=== PATIENT | male | born 1950 | race Caucasian/White ===

== ENCOUNTER 2025-08-28 15:59 | Inpatient (IN) | payer BC, SELFPAY ==
[2025-08-28] VITALS (8 sets, daily range): BP systolic 110–167; BP diastolic 60–92; PULSE 110–136; RESP 18–95; TEMP 36.8–38.3; O2SAT 95–98; BMI 27.1
--- NOTE | 2025-08-28 16:08 | EKG_ITS ---
[facility] Test Date: 2025-08-28 Pat Name: GIANCARLO SCHUMACHER Department: Room: - Gender: Male Sample Maker: : 1950 Requested By: Liban Soriano Order Number: [id number] Reading MD: Liban Soriano Measurements Intervals [place] Rate: 128 P: ME: QRS: 58 QRSD: 94 T: 55 QT: 322 QTc: 471 Interpretive Statements ATRIAL FIBRILLATION WITH RAPID VENTRICULAR RESPONSE ABNORMAL RHYTHM ECG No previous ECG available for comparison /[id number]/S0/[id number]
--- NOTE | 2025-08-28 16:09 | XR_ITS ---
EXAMINATION: AP chest single view TECHNIQUE: AP portable semiupright chest single view Date and time: August 28, 2025, 1648 hours INDICATIONS: Sepsis alert today FINDINGS: The film is rotated RPO Mild prominence cardiac contour Ectatic thoracic aorta. No lobar pneumonia IMPRESSION: Limited chest film No lobar pneumonia
--- NOTE | 2025-08-28 16:10 | EDNOTE_ITS ---
ED General RME/HPI General Chief complaint: Weakness Stated complaint: WEAKNESS Time Seen by Provider: 08/28/25 16:00 Arrival date/time: 08/28/25 15:59 75-year-old male patient with significant history of chronic alcoholism, was brought in by EMS for failure to thrive. Apparently family was concerned after patient was noted to be bedridden, used to be ambulatory unaided, last time patient was walking was 3 weeks ago. Patient also verbalized last intake of alcohol about 3 weeks ago because he cannot get up and cannot go to store to buy the alcohol. When the EMS arrived patient was noted to have multiple bedsores, lying on his bed, with feces all over, according to the EMS the feces looks black. Patient was noted to be tachycardic, and febrile. Sepsis alert was initiated right away. Patient is denying any abdominal pain. Patient is alert and oriented x 3 GCS 15. Patient lives alone. Related Data Allergies Allergy/AdvReac Type Severity Reaction Status Date / Time No Known Allergies Allergy Verified 08/28/25 16:23 Review of Systems Review of Systems Narrative Review of Systems: Review of system reviewed and within normal limits except mentioned in HPI ED Exam Narrative Physical exam: VITAL SIGNS: Reviewed. GENERAL APPEARANCE: Alert and interactive, follows commands, no acute distress, HEAD AND FACE: Non-traumatic. ENT: PERRL, icteric sclera, eyelid no trauma, Mucous membrane moist. NECK: Supple, nontender, no nuchal rigidity. CHEST: No tenderness, no crepitus, no paradoxical movement, no retractions. LUNGS: Clear, well ventilated, symmetric, no rales, no wheezing, no ronchi, no stridor, good breath sounds bilaterally. HEART: Regular rate, regular rhythm, no murmur, no gallops. ABDOMEN: Soft, positive bowel sounds, nondistended, no guarding, nontender, no rebound, no masses, RECTAL: Deferred. GENITAL: Deferred. NEUROLOGICAL: Gross motor function intact sensory function intact, Appropriate for age. MUSCULOSKELETAL: low back nontender, full range of motion. EXTREMITIES: Nontender, full range of motion. SKIN: Color jaundice, dry, no rash, no lacerations, no abrasions, no contusions. Multiple bruising noted, healing abrasion noted to the left lateral leg LYMPHATICS: Deferred. Course Quality Measures none Orders Category Date Time Status COVID-19 Screening Questionnaire NOW Care 08/28/25 21:[address] Screening NOW Care 08/28/25 19:16 Active Agriculture Laboratory Technician STAT Care 08/28/25 16:08 Active Continuous Pulse Oximetry STAT Care 08/28/25 16:08 Completed Decision to Admit X1 Care 08/28/25 21:54 Active EKG (ED ONLY) *Do not use* NOW Care 08/28/25 16:08 Completed In and Out Catheter X1PRN Care 08/28/25 16:08 Active Insert IV NOW Care 08/28/25 16:08 Active NPO STAT Care 08/28/25 16:08 Active Occult Blood,Stool (Nursing) ONCE Care 08/28/25 16:08 Active Strict Intake and Output Routine Care 08/28/25 16:08 Ordered Diet Regular Diet 08/28/[address] abdomen pelvis w con Stat Exams 08/28/25 19:16 Completed EKG (ED Only) Stat Exams 08/28/25 16:08 Draft US gall bladder Stat Exams 08/28/25 16:32 Completed XR chest 1V SEPSIS PROTOCOL Stat Exams 08/28/25 16:09 Completed B-Type Natriuretic Peptide Stat Lab 08/28/25 17:16 Completed Blood Culture (Lab) Stat Lab 08/28/25 16:54 Received CBC Stat Lab 08/28/25 17:16 Completed Comprehensive Metabolic Panel Stat Lab 08/28/25 18:27 Completed Creatine Kinase Stat Lab 08/28/25 18:27 Completed LDH (Lactate Dehydrogenase) Stat Lab 08/28/25 18:27 Completed Lactate (Lactic Acid) Stat Lab 08/28/25 16:54 Completed Lactic Acid, 3 HR Stat Lab 08/28/25 20:16 Completed Lipase Stat Lab 08/28/25 18:27 Completed Magnesium Stat Lab 08/28/25 18:27 Completed Partial Thromboplastin Time Stat Lab 08/28/25 16:54 Completed Phosphorous Stat Lab 08/28/25 18:27 Completed Procalcitonin Stat Lab 08/28/25 18:27 Completed Prothrombin Time with INR Stat Lab 08/28/25 16:54 Completed Troponin I Stat Lab 08/28/25 18:27 Completed Urinalysis, C/S if Indicated Stat Lab 08/28/25 17:34 Completed Urine Culture Stat Lab 08/28/25 17:34 Received Acetaminophen Tab [Tylenol ES Tab] Med 08/28/25 17:54 Discontinued 1,000 mg PO X1 ONE Pantoprazole Inj [Protonix Inj] Med 08/28/25 16:08 Discontinued 80 mg IVP X1 ONE Ringers Lactated 1000 ml [Lactated Ringers] 1,000 ml Med 08/28/25 16:10 Discontinued IV 999 mls/hr Ringers Lactated 1000 ml [Lactated Ringers] 1,000 ml Med 08/28/25 21:07 Discontinued IV 999 mls/hr cefTRIAXone/D5w 1gm IV premix [Rocephin/D5w 1gm IV Med 08/28/25 16:09 Discontinued premix] 1 gm in 50 ml IV X1 Late Tray Request Routine Oth 08/28/25 17:49 Active Oxygen Delivery NOW RT 08/28/25 16:08 Active Vital Signs Vital signs: Vital Signs Temperature 100.1 F 08/28/25 16:08 Pulse Rate 117 H 08/28/25 16:08 Respiratory Rate 18 08/28/25 16:08 Blood Pressure 141/83 H 08/28/25 16:08 Pulse Oximetry (%) 95 08/28/25 16:08 Oxygen Delivery Method Room Air 08/28/25 16:08 Discharge Plan Plan Patient Disposition: Admit Acute Care w/in Hospital Discharge Disposition comment: Stable Prescriptions/Referrals Referrals: No Primary/Family,Physician [Primary Care Provider] - In 1 week Problem List Clinical Impression: Sepsis, UTI (urinary tract infection), Alcoholism, chronic, Cirrhosis of liver Patient/Caregiver Discharge Instructions Print Language: Tamazight Stand Alone Forms: Ramona Award Info., Patient Portal Info Letter MDM Narrative MDM hospital course (for use when minimal MDM required): 75-year-old male patient with significant history of chronic alcoholism, was brought in by EMS for failure to thrive. Apparently family was concerned after patient was noted to be bedridden, used to be ambulatory unaided, last time patient was walking was 3 weeks ago. Patient also verbalized last intake of alcohol about 3 weeks ago because he cannot get up and cannot go to store to buy the alcohol. When the EMS arrived patient was noted to have multiple bedsores, lying on his bed, with feces all over, according to the EMS the feces looks black. Patient was noted to be tachycardic, and febrile. Sepsis alert was initiated right away. Patient is denying any abdominal pain. Patient is alert and oriented x 3 GCS 15. Patient lives alone. Sepsis alert was initiated right away for fever and tachycardia. CBC showed leukocytosis 15.7 sodium 126 chloride 90 lactic acid 3.0 calcium 7.7 total bili of 6.7, AST of 85 alkaline phos of 164. Pro-Aiden was also noted to be elevated 1.5 urinalysis positive for UTI I did a rectal occult blood and it came back unremarkable. Chest x-ray came back normal. Ultrasound the gallbladder showed cholelithiasis with no sign of acute cholecystitis, common bile duct came back normal. CT scan of the abdomen and pelvis showed Cirrhosis, hepatosplenomegaly Mild ascites 3 mm upper pole right renal calculus Patient received IV ceftriaxone, Tylenol, IV fluids total of 2 L and Protonix IV. EKG showed sinus tachycardia, ventricular rate of 128 bpm, no ST segment elevation depression noted. We have filed for APS report since patient is having failure to thrive and got neglected. Spoke with hospitalist, Dr. Yasir Cohen, who admitted the patient. Medication Administration(s) Medication Administration History Discontinued Medications Acetaminophen (Acetaminophen 500 Mg Tablet) 1,000 mg PO X1 ONE Stop: 08/28/25 17:55 Last Admin: 08/28/25 18:32 Dose: Not Given Documented By: JL Non-Admin Reason: Patient Refused Ceftriaxone Sodium/Dextrose (Rocephin/D5w 1gm Iv Premix) 1 gm in 50 mls @ 100 mls/hr IV X1 ONE Stop: 08/28/25 16:38 Last Infusion: 08/28/25 17:46 Dose: Infused Documented By: Admin: 08/28/25 17:16 Dose: 100 mls/hr Documented By: BD Lactated Ringer's (Lactated Ringers) 1,000 mls @ 999 mls/hr IV .Q1H1M ONE Stop: 08/28/25 17:10 Last Infusion: 08/28/25 18:30 Dose: Infused Documented By: Admin: 08/28/25 17:16 Dose: 999 mls/hr Documented By: BD Lactated Ringer's (Lactated Ringers) 1,000 mls @ 999 mls/hr IV .Q1H1M ONE Stop: 08/28/25 22:07 Last Admin: 08/28/25 21:26 Dose: 999 mls/hr Documented By: LUCA Pantoprazole Sodium (Pantoprazole Inj 40 Mg Vial) 80 mg IVP X1 ONE Stop: 08/28/25 16:09 Last Admin: 08/28/25 17:17 Dose: 80 mg Documented By: KEIRA
--- NOTE | 2025-08-28 16:32 | XR_ITS ---
Examination: Abdomen sonogram, Limited Date and time of exam: August 28, 2025, 1923 hours INDICATIONS: History of chronic alcoholism with jaundice today Technique: Real-time javier scale transabdominal sonographic images of the upper abdomen obtained. Findings: Multiple gallstones Gallbladder wall 0.3 cm no edema Common bile duct 0.15 cm Pancreas obscured by bowel gas Liver 20.3 cm no focal liver lesions Normal hepatopetal portal venous flow Patent IVC IMPRESSION: Cholelithiasis, negative for cholecystitis
[2025-08-28 16:59] LABS: Lactate (Lactic Acid) 2.4 mMol/L (0.4-2.0)
--- NOTE | 2025-08-28 17:14 | PC.NURSE ---
pt refused in and out cath
[2025-08-28] MEDS: RINGERS LACTATED 1000 ML 1,000 ML 999 ML IV ×2 (17:16→21:26)
[2025-08-28] MEDS: cefTRIAXone/D5w 1gm IV premix 1 GM/50 ML BAG IV (17:16)
[2025-08-28 17:28] LABS: Basophils # (Auto) 0.1 Thou/mm3 (0.0-0.2); Basophils % (Auto) 1 % (0-2.5); Eosinophils # (Auto) 0.0 Thou/mm3 (0.0-0.5); Eosinophils % (Auto) 0 % (0-10); Hematocrit 33.2 % (41.0-53.0); Hemoglobin 11.5 g/dL (13.5-16.0); Immature Granulocytes Auto 0.33 Thou/mm3 (0.00-0.00); Lymphocytes # (Auto) 1.2 Thou/mm3 (1.0-4.8); Lymphocytes % (Auto) 7 % (10-50); Mean Corpuscular HGB Conc 34.6 g/dl (31.0-37.0); Mean Corpuscular Hemoglobin 31.7 pg (25.0-35.0); Mean Corpuscular Volume 92 fL (80-100); Monocytes # (Auto) 1.0 Thou/mm3 (0.0-0.8); Monocytes % (Auto) 6 % (0-12); Neutrophils # (Auto) 13.2 Thou/mm3 (1.8-7.7); Neutrophils % (Auto) 84 % (37-80); Nucleated Red Blood Cell # 0.00 Thou/mm3 (0.00-0.00); Nucleated Red Blood Cell % 0 /100 WBC (0); Platelet Count 234 Thou/mm3 (140-440); RDW Standard Deviation 58.6 fL (35.1-43.9); Red Blood Count 3.63 Miln/mm3 (4.50-5.90); White Blood Count 15.7 Thou/mm3 (3.8-10.6)
--- NOTE | 2025-08-28 17:39 | PC.NURSE ---
pt was brought in from ems found at home, pt was covered in feces, pt states that he fell about 7 weeks ago from recliner and spent 2 weeks on floor and 4 weeks in bed, he [place] his mother and father own mother and father are in 90's and live in main house. he states that he has only had boost milk shakes and bananas to eat no other source of food. he states that he has not had alcohol since he fell. and that he would drink every day most of the time when asked how much he stated he did not know. enough to feel like he was going to pass out get up and go to bed. he states prior to fall he lived like any other alcoholic able to move around drink and get up and do it again. he states that he has no help and lives alone. that his parent departmental buyer david arranged for him to come here. pt states he is hungry and does not know when he last had actual food.
[2025-08-28 17:44] LABS: Collection Type, Urine Clean Catch; Squamous Epithelial Cell,Urine 0 /hpf (0-5)
[2025-08-28 17:44] LABS: INR 2.1 (0.9-1.3); Partial Thromboplastin Time 21.1 Seconds (22.0-36.0); Prothrombin Time 21.0 Seconds (9.0-12.2)
[2025-08-28 17:46] LABS: B-Type Natriuretic Peptide 97 pg/mL (0-100)
[2025-08-28 18:26] LABS: Amorphous Crystals,Urine Present (Absent); Bacteria,Urine 3+; Bilirubin,Urine 1+ (Negative); Blood,Urine 2+ (Negative); Clarity,Urine Turbid (Clear/Hazy); Color,Urine Drk-Yellow (Lt Yel-Yel); Glucose, Urine Negative (Negative); Ketones,Urine Negative (Negative); Leukocyte Esterase,Urine Positive (Negative); Nitrite,Urine Negative (Negative); PH,Urine 6.5 (5.0-7.0); Protein,Urine Trace (Neg - Trace); RBC,Urine 3 /hpf (0-3); Specific Gravity,Urine 1.012 (1.001-1.035); Urobilinogen,Urine 6.0 mg/dL (0.0-1.0); WBC,Urine 45 /hpf (0-5)
[2025-08-28 18:27] LABS: Culture Indicated,Urine Yes
[2025-08-28 19:09] LABS: Alanine Aminotransferase 42 U/L (10-49); Albumin, Serum 2.7 gm/dL (3.4-4.8); Albumin/Globulin Ratio 0.8 (1.2-2.2); Alkaline Phosphatase 164 U/L (46-116); Anion Gap 10 (7-16); Aspartate Amino Transferase 85 U/L (0-34); BUN/Creatinine Ratio 19 Ratio (12-20); Bilirubin,Total 6.7 mg/dL (0.3-1.2); Blood Urea Nitrogen 19 mg/dL (9-23); Calcium 7.7 mg/dL (8.3-10.6); Calcium (Corrected) 8.7 mg/dL (8.5-10.1); Carbon Dioxide 26.3 mMol/L (20.0-31.0); Chloride 90 mMol/L (98-107); Creatinine (Component) 1.0 mg/dL (0.6-1.3); Estimated Creatinine Clearance 72.2 mL/min (>60); Globulin 3.4 gm/dL (2.3-3.5); Glucose 138 mg/dL (74-106); Lipase 46 U/L (12-53); Magnesium 2.2 mg/dL (1.6-2.6); Osmolality,Calculated 257 (275-295); Phosphorous 3.1 mg/dL (2.4-5.1); Potassium 4.6 mMol/L (3.4-5.1); Sodium 126 mMol/L (136-145); Total Protein 6.1 gm/dL (5.7-8.2); Troponin I < 0.020 ng/mL (0.0-0.045); eGFR > 60 See Note
[2025-08-28 19:15] LABS: Procalcitonin 1.50 ng/ml (0.0-0.49)
--- NOTE | 2025-08-28 19:16 | XR_ITS ---
Examination: CT abdomen with intravenous contrast CT pelvis with intravenous contrast 2-D coronal reconstructions 2-D sagittal reconstructions Date and time of exam: August 28, 2025, 2113 hours INDICATIONS: Weakness jaundice today with elevated total bilirubin. CTDI: vol (mGy) 21.31 DLP: (mGycm) 1399 Technique: Multiple axial sections of the abdomen and pelvis have been obtained. 64 slice high-resolution scanner used. 3 mm axial sections have been obtained, post intravenous injection 60 cc [id number] 2-D sagittal, coronal reconstructions obtained. Low dose protocols were performed. One or more of the following dose reduction techniques were used; automated exposure control, adjustment of the mA and/or KV according to patient size, use of iterative reconstruction technique. Findings: Minimal right pleural disease Liver irregular in contour and enlarged, 21 cm Splenomegaly 14 cm Gallstones No pancreatic or adrenal mass No extrahepatic biliary tract dilatation 3 mm upper pole right renal calculus, no hydronephrosis or ureteral calculi Mild ascites Aorta normal size No pericecal inflammatory change Abundant stool in the rectum Mild prostatomegaly Fat-containing inguinal hernias Contracted urinary bladder Lumbar fusion L3-L4 Prominent osteopenia IMPRESSION: Cirrhosis, hepatosplenomegaly Mild ascites 3 mm upper pole right renal calculus
--- NOTE | 2025-08-28 19:35 | PC.CC ---
Addendum entered by Yanira Ashton 08/28/25 19:37: APS report completed with [facility]. APS report faxed. APS copy on Pt chart. Original Note: Sarmad Delgado is a 75-year-old male admitted for Weakness. Horticulture Professor made contact with Pt at bedside to complete assessment and discuss discharge disposition. Role and reason for the contact was explained to Pt. Demographic information was verified. Pt identified Father Leighann Delgado [phone] as surrogate decision maker. Pt was independent with all ADLs, no source of DME prior to fall x3 weeks ago, since then Pt has been bedbound and unable to complete all ADLs without assistance. At time of discharge patient will return home, Pt declined SNIF/HH, Pt agreeable to Rehab. Pt denies any use of substance abuse but endorse alcoholism, no DV, APS report completed. Discharge Plan: Home Next of Kin: Father Leighann Delgado [phone]
[2025-08-28 19:57] LABS: Reflex Lactate? Y
[2025-08-28 20:39] LABS: Lactic Acid, 3 HR 3.0 mMol/L (0.4-2.0)
--- NOTE | 2025-08-28 21:06 | PC.NURSE ---
call received from daphney lindsey on the status of her uncle
--- NOTE | 2025-08-28 23:15 | XR_ITS ---
Examination: Shoulder, right, 3 views Technique: Shoulder AP internal rotation, AP external rotation, Y view shoulder, 3 views Exam date and time : August 29, 2025, 0016 hours INDICATIONS: Right shoulder pain 2 weeks. FINDINGS: Moderate to advanced osteoarthritis glenohumeral joint No fracture or shoulder dislocation Moderate osteoarthritis acromioclavicular joint IMPRESSION: Moderate to advanced osteoarthritis glenohumeral joint
[2025-08-28 23:22] LABS: Creatine Kinase 19 U/L (34-171)
[2025-08-29] VITALS (10 sets, daily range): BP systolic 95–127; BP diastolic 55–79; PULSE 98–130; RESP 15–20; TEMP 36.2–37.1; O2SAT 93–96; BMI 30.2
--- NOTE | 2025-08-29 01:24 | ECHO_ITS ---
Patient Info Name: Sarmad Delgado Age: 75 years : 1950 Gender: Male Ht: 183 cm Wt: 91 kg BSA: 2.16 m2 BP: 127 / 79 mmHg Heart Rhythm: Atrial Fibrillation Exam Date: 08/29/2025 9:03 AM Admit Date: 08/29/2025 Site: [facility] Room Number: 274 Patient Status: I Technical Quality: Fair Exam Type: CA echo doppler complete Program Officer: Nayely Lorenzana Ordering Physician: Sourav Carballo Study Info Indications Afib, new onset - Primary Location: S2NX Left Ventricular Outflow Tract Name Value Normal LVOT 2D LVOT Diameter 2.1 cm LVOT Doppler LVOT Peak Velocity 106 cm/s LVOT Mean Gradient 3 mmHg LVOT VTI 20 cm LVOT VTI/AV VTI Ratio 0.7 LVOT Stroke Volume 69 ml Pulmonic Valve Name Value Normal PV Doppler PV Peak Velocity 78 cm/s Mitral Valve Name Value Normal MV Doppler MV Decel Otero 434 cm/s2 MV PHT 53 ms MV Area (PHT) 4.1 cm2 4.0-5.0 MV Diastolic Function MV E Peak Velocity 80 cm/s MV A Peak Velocity 29 cm/s MV E/A 2.7 MV Annular TDI MV Septal e' Velocity 11.7 cm/s MV E/e' (Septal) 6.8 MV Lateral e' Velocity 13.8 cm/s MV E/e' (Lateral) 5.8 MV e' Average 12.75 cm/s MV E/e' (Average) 6.3 Tricuspid Valve Name Value Normal TV Regurgitation Doppler TR Peak Velocity 228 cm/s Estimated PAP/RSVP RA Pressure 8 mmHg <=5 PA Systolic Pressure 29 mmHg <36 RV Systolic Pressure 29 mmHg <36 TV Annular TDI TV Lateral Calista s' Velocity 12.3 cm/s >=9.5 Aortic Valve Name Value Normal AV 2D/MM AV Cusp Sep (MM) 1.7 cm AV Doppler AV Peak Velocity 155 cm/s AV Mean Gradient 5 mmHg AV VTI 27 cm AV Area (Cont Eq VTI) 2.5 cm2 >=3.0 AV Area (Cont Eq Jez) 2.4 cm2 AV DI (Jez) 0.68 AV Regurgitation 2D LVOT Area 3.5 cm2 Ventricles Name Value Normal LV Dimensions 2D/MM IVS Diastolic Thickness (2D) 1.2 cm 0.6-1.0 LVID Diastole (2D) 4.7 cm 4.2-5.8 LVIW Diastolic Thickness (2D) 1.0 cm 0.6-1.0 LVID Systole (2D) 3.5 cm 2.5-4.0 LVOT Diameter 2.1 cm LV Mass (2D Cubed) 191.43 g 88.00-224.00 LV Mass Index (2D Cubed) 89 g/m2 49-115 Relative Wall Thickness (2D) 0.43 <=0.42 IVS/LVIW Diastolic Thickness (2D) 1.23 0.00-1.50 LV Fractional Shortening/Ejection Fraction 2D/MM LV Fractional Shortening (2D) 26 % 25-43 LV EF (2D Teichholz) 50 % RV Dimensions 2D/MM TV Lateral Calista s' Velocity 12.3 cm/s >=9.5 Atria Name Value Normal LA Dimensions LA Volume (4C A-L) 54 ml Left Ventricle Left ventricular chamber dimension is normal. Left ventricular systolic function is hyperdynamic with visually estimated ejection fraction of 60-65%. There is mild concentric hypertrophy noted in the left ventricle. Left ventricular segmental wall motion is normal. There is normal diastolic function in the left ventricle. Right Ventricle Right ventricular chamber dimension is normal. Right ventricular systolic function is normal. Left Atrium Left atrial chamber dimension is mildly enlarged. Right Atrium Right atrial chamber dimension is normal. Aortic Valve The aortic valve is trileaflet. There is no aortic valve sclerosis. There is no aortic valve stenosis with a peak velocity of 155 cm/s, mean gradient of 5 mmHg, and aortic valve area of 2.5 cm2. There is no aortic valve regurgitation. Pulmonic Valve The pulmonic valve is normal. There is no pulmonic valve stenosis. There is no pulmonic regurgitation. Mitral Valve The mitral valve has normal leaflets. There is no mitral valve stenosis. There is trace mitral valve regurgitation. Tricuspid Valve The tricuspid valve leaflets are normal. There is no tricuspid valve stenosis. There is mild tricuspid valve regurgitation. No pulmonary hypertension, estimated pulmonary arterial systolic pressure is 29 mmHg and systemic blood pressure of 127 mmHg in systole. Pericardium/Pleural The pericardium appears normal. There is trivial pericardial effusion with no tamponade. No pleural effusion visualized. Inferior Vena Cava Not well visualized inferior vena cava with >50% collapse upon inspiration consistent with normal right atrial pressure, 8 mmHg. Aorta The aortic measurements are indexed to age and body surface area. The aortic root at the sinus of Valsalva is not well visualized. The prox ascending aorta is not well visualized. Summary 1. Left ventricle size is normal and systolic function is hyperdynamic. Estimated ejection fraction is 60-65%. There is normal diastolic function. There is mild concentric hypertrophy noted. 2. Right ventricle chamber size is normal and systolic function is normal. Estimated RVSP is 29 mmHg. 3. There is trace mitral valve regurgitation. 4. There is mild tricuspid valve regurgitation. 5. The left atrium is mildly enlarged. The right atrium is normal. 6. Not well visualized IVC with estimated RA pressure 8 mmHg. Report Signatures Finalized by Eli Chacon on 08/29/2025 02:51 PM
--- NOTE | 2025-08-29 01:31 | ESHP_ITS ---
<Statement entered by Sourav Carballo MD - 08/29/25 07:08> 75-year-old male with no significant past medical history, chronic alcohol intake, never seen a doctor in the last 20 years presented to the hospital with chief complaints of generalized weakness, not able to get out of bed since 8 weeks. Patient noted to give different time line history to different people. To me, he endorsed that he was under alcohol intoxication and had a fall 8 weeks ago and fell on his right shoulder and right half of the body. Later he was not able to get up due to which he stayed on the floor for 4 weeks without food and water. Later some of his family members came down and moved him to the bed and where he stayed on it for 4 weeks without food and water. But on examination, patient does not appear to be severely dehydrated or stayed down for 8 weeks. He also endorsed that he had decubitus ulcer as he laid down on the floor for a while now. Denies fever, shortness of breath, nausea, vomitings, burning micturition. Vitals at the time of admission are significant for blood pressure 141/83 mmHg, pulse rate 117 bpm, regular. On examination, noted to have bruise below the right shoulder, restricted movement in the right and left shoulder, grossly icteric, hepatosplenomegaly, minimal bilateral pitting pedal edema of 1+. Labs at the time of admission are significant for WBC 15.7, hemoglobin 11.5, INR 2.1, sodium 126, chloride 90, calculated osmolality 257, total bilirubin 6.7, direct bilirubin 5.2, creatinine kinase 19, albumin 2.7, Pro-Aiden 1.5. Urinalysis is significant for 3+ bacteria, 45 WBC. Chest x-ray is severely rotated. Gallbladder ultrasound showed cholelithiasis and is negative for cholecystitis. EKG showed atrial fibrillation with rapid ventricular rate with no acute ST and T wave changes. CT abdomen/pelvis showed cirrhosis, hepatosplenomegaly, mild ascites. Shoulder x-rays negative for fracture. 2 L of fluid boluses given in the ED. Started on heparin drip, metoprolol, ceftriaxone, CIWA protocol, physical therapy referral, wound care referral was done. Follow-up with blood cultures and urine cultures I have personally seen and examined the patient, agree with residents assessment and plan Patient plan of care was discussed with the attending physician, Dr. Reilly Carballo, PGY2 Documentation for date of: 08/29/25 HPI History of Present Illness History of present illness: HPI: 75-year-old male past medical history of alcoholism presented to the ED [facility] in the afternoon of 08/28/2025 after being bedridden for 4 weeks.? Patient is a poor historian.? He was reported to have been found down by a neighbor covered in his own feces 8 weeks ago after being intoxicated.? He was transferred to a bed where he has stayed for the past 4 weeks until presentation.? He was unable to ambulate for the past 8 weeks and reportedly did not eat or drink for the past 8 weeks. It was reported that when EMS arrived the patient was lying in bed covered with his own feces that were black. The patient was found to have UTI and a lactate of 2.4 which increased to 3.0.? On arrival the patient was tachycardic, febrile, and had a leukocytosis meeting 3/4 SIRS criteria with a suspected source of infection and the patient had lactic acidosis, meeting severe sepsis criteria.? Sepsis alert was initiated and the patient received 2 L of LR and 1 g of ceftriaxone. ?The patient was also found to be in A-fib and to be jaundiced with a total bilirubin of 6.7.? Gallbladder ultrasound was positive for mild ascites, cirrhosis, and cholelithiasis with no CBD or cystic duct obstruction.? Naidu?s sign was negative on exam. Per the patient his last drink was 8 weeks ago.? Before then he would have 1-2 week episodes of binge drinking consuming 1/5 of vodka daily.? This has been going on for the past 15-20 years.? The frequency of binge drinking episodes was unspecified. Patient was admitted for severe sepsis secondary to UTI. ED Course: * Significant vitals on arrival: BP 141/83, pulse 117, temp 101.0, saturating at 95% on room air. * Significant labs: WBC 15.7, hemoglobin 11.5, PT 21, INR 2.1, PTT 21.1, sodium 126, chloride 90, glucose 245, calculated osmolality 257, lactic acid 2.4 increased to 3.0, calcium 7.7, T. bili 6.7, AST 85, ALT 42, alk phos 164, albumin 2.7, Pro-Aiden 1.5. * Imaging: Chest x-ray showed no evidence of pneumonia, mild prominence of the cardiac contour, ectatic thoracic aorta.? Gallbladder ultrasound was significant for multiple gallstones, no cholecystitis, CBD 0.15 cm, gallbladder wall 0.3 cm with no edema.? EKG showed A-fib RVR with a rate of 128 and QTc of 471, no acute ST segment changes.? CTAP showed a cirrhotic 21 cm liver with irregular contour, splenomegaly, 3 mm upper pole right renal calculus with no hydronephrosis, mild ascites, fat-containing inguinal hernias, lumbar fusion L3-L4. * Urine: Turbid, 2+ blood, 1+ bilirubin, 45 WBC, amorphous crystals, 3+ bacteria, leukocyte esterase positive * ED intervention: Patient received 1 g ceftriaxone, 2 L of LR, and 80 mg IV push of pantoprazole.? Urine culture and blood cultures were sent. History: * Past medical history: Alcohol use disorder * Surgical history: Bilateral rotator cuff repairs * Social history: Alcohol use disorder, 15-20 years, 1-2-week episodes of binge drinking with 1/5 of vodka daily, unknown frequency of episodes.? Denies tobacco or illicit drug use. Allergies: * No known drug allergies. Home Medications: (Pending Med Rec) * Denies taking any home medications. CODE STATUS: Full Code Review of Systems Review of Systems Narrative Review of Systems: Review of Systems: * General: Denies fevers, admits to chills. * HEENT: Denies headache, congestion, or sore throat. * Cardiac: Denies chest pain or palpitations. * Pulmonary: Denies shortness of breath or cough. * GI: Denies nausea, vomiting, diarrhea, constipation, melena, or hematochezia. * : Denies dysuria, hematuria, frequency, or urgency. * MSK: Denies pain in the extremities, joints, or myalgias. * Neuro: Denies weakness, numbness, vision changes, or speech difficulty. Exam Vital Signs Temp Pulse Resp BP Pulse Ox O2 Del Method 98.6 F 110 H 23 H 119/60 97 Room Air 08/28/25 23:51 08/28/25 23:51 08/28/25 23:51 08/28/25 23:51 08/28/25 23:51 08/28/25 23:18 Narrative Exam General: Jaundiced, scleral icterus. Awake and in no acute distress. Conversational and non-toxic appearing. Neurologic: GCS 15. Alert and oriented x3, no gross neurological deficit, and patient able to move all 4 extremities. HEENT: Normocephalic, atraumatic, mucous membranes moist. Pupils reactive to light. Heart: Irregular rhythm, tachycardic in the 120s, no murmurs. Lungs: Clear to auscultation bilaterally with no wheezing or crackles. Abdomen: Firm, distended, Naidu sign negative. Minimal ascetic fluid wave. Nontender. No guarding or rebound tenderness. Extremities: Ecchymosis inferior to the right shoulder on the chest. No edema. 2+ radial and dorsalis pedis pulses bilaterally. Skin: Jaundiced. Warm. Dry. No rash or ecchymoses. Results: Labs 08/29/25 01:51 08/29/25 01:51 Labs: Short CBC 08/28/25 Range/Units 17:16 WBC 15.7 H (3.8-10.6) Thou/mm3 Hgb 11.5 L (13.5-16.0) g/dL Hct 33.2 L (41.0-53.0) % Plt Count 234 (140-440) Thou/mm3 BMP 08/28/25 18:27 Sodium 126 L Potassium 4.6 Chloride 90 L Carbon Dioxide 26.3 BUN 19 Creatinine 1.0 Glucose 138 H Calcium 7.7 L Cardiac Enzymes 08/28/25 08/28/25 Range/Units 18:27 22:56 Total Creatine Kinase Not Performed. 19 L Troponin I < 0.020 (0.0-0.045) ng/mL Liver Function 08/28/25 Range/Units 18:27 Total Bilirubin 6.7 H (0.3-1.2) mg/dL AST 85 H (0-34) U/L ALT 42 (10-49) U/L Alkaline Phosphatase 164 H (46-116) U/L Albumin 2.7 L (3.4-4.8) gm/dL Urine 08/28/25 Range/Units 17:34 Urine Color Drk-Yellow A (Lt Yel-Yel) Urine Clarity Turbid A (Clear/Hazy) Urine pH 6.5 (5.0-7.0) Ur Specific [place] 1.012 (1.001-1.035) Urine Protein Trace (Neg - Trace) Urine Glucose (UA) Negative (Negative) Quality Measures Quality Measures VTE prophylaxis Advance care planning discussed with:: patient Medications Home Medications and Allergies Home Medications ?Medication ?Instructions ?Recorded ?Confirmed ?Type No Known Home Medications 08/29/2508/16 History Allergies Allergy/AdvReac Type Severity Reaction Status Date / Time No Known Allergies Allergy Verified 08/28/25 16:23 Visit Medications Acetaminophen (Acetaminophen 325 Mg Tablet) 650 mg PO Q6H PRN PRN Reason: Fever >100.4 Stop: 09/28/25 01:19 Diazepam (Diazepam Inj 5 Mg/Ml Vial 2 Ml) 5 mg IVP X1 PRN PRN Reason: Breakthrough Agitation Heparin Sodium (Porcine) (Heparin Sod Inj 5000 Unit/Ml Vial) 7,250 unit 80 unit/kg (7250 unit) IV X1 ONE; Protocol Stop: 08/29/25 01:22 Heparin Sodium/Dextrose (Heparin In D5w Ivpb) 25,000 unit in 250 mls @ 16.329 mls/hr IV .[id number] ENRIQUE; Protocol Stop: 09/12/25 01:29 Ceftriaxone Sodium/Dextrose (Rocephin/D5w 1gm Iv Premix) 1 gm in 50 mls @ 100 mls/hr IV QDAY ENRIQUE Stop: 09/05/25 08:59 Lorazepam (Lorazepam 0.5 Mg Tablet) 0.5 mg PO Q4HR PRN PRN Reason: CIWA Score 2-6 Stop: 09/03/25 01:23 Lorazepam (Lorazepam 0.5 Mg Tablet) 1 mg PO Q4HR PRN PRN Reason: CIWA SCORE 7-11 Stop: 09/03/25 01:23 Lorazepam (Lorazepam 0.5 Mg Tablet) 2 mg PO Q4HR PRN PRN Reason: CIWA SCORE 12-15 Stop: 09/03/25 01:23 Discontinued Medications Acetaminophen (Acetaminophen 500 Mg Tablet) 1,000 mg PO X1 ONE Stop: 08/28/25 17:55 Last Admin: 08/28/25 18:32 Dose: Not Given Ceftriaxone Sodium/Dextrose (Rocephin/D5w 1gm Iv Premix) 1 gm in 50 mls @ 100 mls/hr IV X1 ONE Stop: 08/28/25 16:38 Last Infusion: 08/28/25 17:46 Dose: Infused Lactated Ringer's (Lactated Ringers) 1,000 mls @ 999 mls/hr IV .Q1H1M ONE Stop: 08/28/25 17:10 Last Infusion: 08/28/25 18:30 Dose: Infused Lactated Ringer's (Lactated Ringers) 1,000 mls @ 999 mls/hr IV .Q1H1M ONE Stop: 08/28/25 22:07 Last Infusion: 08/28/25 22:37 Dose: Infused Ceftriaxone Sodium/Dextrose (Rocephin/D5w 1gm Iv Premix) 1 gm in 50 mls @ 100 mls/hr IV QDAY ENRIQUE Stop: 09/05/25 01:22 Pantoprazole Sodium (Pantoprazole Inj 40 Mg Vial) 80 mg IVP X1 ONE Stop: 08/28/25 16:09 Last Admin: 08/28/25 17:17 Dose: 80 mg Thiamine HCl (Thiamine Inj 100 Mg/Ml Vial 2 Ml) 100 mg IVP X1 ONE Stop: 08/29/25 01:24 Assessment & Plan Plan Summary: 75-year-old male past medical history of alcoholism presented to the ED [facility] in the afternoon of 08/28/2025 after being bedridden for 4 weeks.? Patient is a poor historian.? He was reported to have been found down by a neighbor covered in his own feces 8 weeks ago after being intoxicated.? He was transferred to a bed where he has stayed for the past 4 weeks until presentation.? He was unable to ambulate for the past 8 weeks and reportedly did not eat or drink for the past 8 weeks. It was reported that when EMS arrived the patient was lying in bed covered with his own feces that were black. The patient was found to have UTI and a lactate of 2.4 which increased to 3.0.? On arrival the patient was tachycardic, febrile, and had a leukocytosis meeting 3/4 SIRS criteria with a suspected source of infection and the patient had lactic acidosis, meeting severe sepsis criteria. Patient was admitted for severe sepsis secondary to UTI. #Sepsis Secondary to #UTI #Leukocytosis #Lactic acidosis * Patient presented with fever 101.0, pulse 117, WBC 15.7 meeting 3/4 SIRS criteria for sepsis * Patient had a lactic acid 2.4 increased to 3.0, qualified for severe sepsis * Suspected source is UTI. Urinalysis showed: Turbid, 2+ blood, 1+ bilirubin, 45 WBC, amorphous crystals, 3+ bacteria, leukocyte esterase positive * Patient's BP has been stable and there is no evidence of end organ damage, creatinine and troponins are normal, no pulmonary edema Plan: * Ceftriaxone 1 g daily * Urine cultures pending * Blood cultures pending * Will determine whether or not to use IV maintenance fluids depending on the next lactic acid because the patient has ascites and liver failure and there is no echo on file (Echo ordered) #Hyperbilirubinemia #Cholelithiasis #Cirrhosis secondary to #Alcohol use disorder #Hypoalbuminemia #Mild Ascites * T. bili 6.7, CTAP showed a cirrhotic 21 cm liver with irregular contour no evidence of CBD obstruction * Elevated T. bili likely secondary to cirrhosis * Patient mentioned that his last drink was 8 weeks ago * No signs of withdrawal on exam: No tremors, no diaphoresis * PT 21, INR 2.1, PTT 21.1, Albumin 2.7, Mild ascites * MELD Score 22: 19.6% 3-month mortality * [facility] Discriminant Function for Alcoholic Hepatitis: 47.2 * Child Shahid: 11, class C, life expectancy 1-3 years, abdominal surgery perioperative mortality 82% Plan: * CIWA protocol * CIWA score 2-6: Ativan 0.5 mg Q 4 PRN * CIWA score 7-11: Ativan 1 mg Q 4 PRN * CIWA score 12-15: Ativan 2 mg Q 4 PRN * Diazepam 5 mg IV push x 1 as needed for breakthrough agitation * Folic acid 1 mg daily * Patient received 100 mg IV push thiamine * director of medical staff services referral #New onset A-fib with RVR * EKG showed A-fib RVR with a rate of 128 and QTc of 471, no acute ST segment changes. * Patient does not take any medications nor has he seen a physician in many years * CHADSVASC: 3 * +1 (age 65-74) * +1 (possible CHF history?, patient had mild prominence of the cardiac contour on chest x-ray) * +1 (patient had BP 167/92) * HASBLED: 5 * +1 (hypertension) * +1 (liver disease) * +1 (high INR) * +1 (age over 65) * +1 (alcohol use) Plan: * Patient received one-time dose of 8000 units of heparin * Heparin drip 18 units per Kg per hour * Echo ordered * Cardiology consulted #Hyponatremia #Hypochloremia * Sodium 126, chloride 90 * Likely secondary to decreased oral intake versus volume depletion * Patient has mild ascites but may require more fluids due to lactic acidosis and sepsis Plan: * Patient started eating in the ED, will continue to encourage oral intake * Will continue to monitor and use 0.9% normal saline for resuscitation if lactic acid uptrend #Hyperglycemia * Presented with a glucose of 138, fingerstick was 245 Plan: * Follow-up A1c #Acute normocytic anemia #Tarry stools * Patient presented with a hemoglobin of 11.5, MCV 92 * Per EMS the patient was covered in tarry stools when they arrived at his home * FOBT was negative in the ED * No suspicion for active bleeding at this time * May be dilutional or secondary to nutritional deficiency secondary to alcohol use Plan: * Transfuse if hemoglobin less than 7 #Incidental finding of 3 mm upper pole right renal calculus * On CT abdomen pelvis Plan: * No direct intervention at this time Hospital Maintenance: DVT ppx: Heparin drip Diet: Regular diet IV lines: Peripheral IVs Code status: Full code Dispo: Telemetry monitoring floor, started heparin drip, follow-up lactate, starting ceftriaxone for, cardiology consulted for A-fib. Patient was seen and discussed with my attending physician Dr. Reilly LANDEROS and my senior resident Dr Kait LANDEROS PGY-2. Mathew Pringle DO PGY-1. Attending Provider Attestation/Addendum After examination of the patient and review of the clinical data I feel that this patient needs admission to the hospital for further treatment/evaluation. Plan of care discussed with patient and is in agreement. I Rody Grover MD, attest that I was physically present for patterson portions of evaluation, and examined patient, labs and imagings and plan of care were discussed with IM residents team, and I agree with the findings and plans documented above.
--- NOTE | 2025-08-29 01:31 | PD.RESHP ---
Documentation for date of: 08/29/25 HPI History of Present Illness History of present illness: HPI: 75-year-old male past medical history of alcoholism presented to the ED [facility] in the afternoon of 08/28/2025 after being bedridden for 4 weeks.? Patient is a poor historian.? He was reported to have been found down by a neighbor covered in his own feces 8 weeks ago after being intoxicated.? He was transferred to a bed where he has stayed for the past 4 weeks until presentation.? He was unable to ambulate for the past 8 weeks and reportedly did not eat or drink for the past 8 weeks. It was reported that when EMS arrived the patient was lying in bed covered with his own feces that were black. The patient was found to have UTI and a lactate of 2.4 which increased to 3.0.? On arrival the patient was tachycardic, febrile, and had a leukocytosis meeting 3/4 SIRS criteria with a suspected source of infection and the patient had lactic acidosis, meeting severe sepsis criteria.? Sepsis alert was initiated and the patient received 2 L of LR and 1 g of ceftriaxone. ?The patient was also found to be in A-fib and to be jaundiced with a total bilirubin of 6.7.? Gallbladder ultrasound was positive for mild ascites, cirrhosis, and cholelithiasis with no CBD or cystic duct obstruction.? Naidu?s sign was negative on exam. Per the patient his last drink was 8 weeks ago.? Before then he would have 1-2 week episodes of binge drinking consuming 1/5 of vodka daily.? This has been going on for the past 15-20 years.? The frequency of binge drinking episodes was unspecified. Patient was admitted for severe sepsis secondary to UTI. ED Course: Significant vitals on arrival: BP 141/83, pulse 117, temp 101.0, saturating at 95% on room air. Significant labs: WBC 15.7, hemoglobin 11.5, PT 21, INR 2.1, PTT 21.1, sodium 126, chloride 90, glucose 245, calculated osmolality 257, lactic acid 2.4 increased to 3.0, calcium 7.7, T. bili 6.7, AST 85, ALT 42, alk phos 164, albumin 2.7, Pro-Aiden 1.5. Imaging: Chest x-ray showed no evidence of pneumonia, mild prominence of the cardiac contour, ectatic thoracic aorta.? Gallbladder ultrasound was significant for multiple gallstones, no cholecystitis, CBD 0.15 cm, gallbladder wall 0.3 cm with no edema.? EKG showed A-fib RVR with a rate of 128 and QTc of 471, no acute ST segment changes.? CTAP showed a cirrhotic 21 cm liver with irregular contour, splenomegaly, 3 mm upper pole right renal calculus with no hydronephrosis, mild ascites, fat-containing inguinal hernias, lumbar fusion L3-L4. Urine: Turbid, 2+ blood, 1+ bilirubin, 45 WBC, amorphous crystals, 3+ bacteria, leukocyte esterase positive ED intervention: Patient received 1 g ceftriaxone, 2 L of LR, and 80 mg IV push of pantoprazole.? Urine culture and blood cultures were sent. History: Past medical history: Alcohol use disorder Surgical history: Bilateral rotator cuff repairs Social history: Alcohol use disorder, 15-20 years, 1-2-week episodes of binge drinking with 1/5 of vodka daily, unknown frequency of episodes.? Denies tobacco or illicit drug use. Allergies: No known drug allergies. Home Medications: (Pending Med Rec) Denies taking any home medications. CODE STATUS: Full Code Review of Systems Review of Systems Narrative Review of Systems: Review of Systems: General: Denies fevers, admits to chills. HEENT: Denies headache, congestion, or sore throat. Cardiac: Denies chest pain or palpitations. Pulmonary: Denies shortness of breath or cough. GI: Denies nausea, vomiting, diarrhea, constipation, melena, or hematochezia. : Denies dysuria, hematuria, frequency, or urgency. MSK: Denies pain in the extremities, joints, or myalgias. Neuro: Denies weakness, numbness, vision changes, or speech difficulty. Exam Vital Signs Temp Pulse Resp BP Pulse Ox O2 Del Method 98.6 F 110 H 23 H 119/60 97 Room Air 08/28/25 23:51 08/28/25 23:51 08/28/25 23:51 08/28/25 23:51 08/28/25 23:51 08/28/25 23:18 Narrative Exam General: Jaundiced, scleral icterus. Awake and in no acute distress. Conversational and non-toxic appearing. Neurologic: GCS 15. Alert and oriented x3, no gross neurological deficit, and patient able to move all 4 extremities. HEENT: Normocephalic, atraumatic, mucous membranes moist. Pupils reactive to light. Heart: Irregular rhythm, tachycardic in the 120s, no murmurs. Lungs: Clear to auscultation bilaterally with no wheezing or crackles. Abdomen: Firm, distended, Naidu sign negative. Minimal ascetic fluid wave. Nontender. No guarding or rebound tenderness. Extremities: Ecchymosis inferior to the right shoulder on the chest. No edema. 2+ radial and dorsalis pedis pulses bilaterally. Skin: Jaundiced. Warm. Dry. No rash or ecchymoses. Results: Labs 08/29/25 01:51 08/29/25 01:51 Labs: Short CBC 08/28/25 Range/Units 17:16 WBC 15.7 H (3.8-10.6) Thou/mm3 Hgb 11.5 L (13.5-16.0) g/dL Hct 33.2 L (41.0-53.0) % Plt Count 234 (140-440) Thou/mm3 BMP 08/28/25 18:27 Sodium 126 L Potassium 4.6 Chloride 90 L Carbon Dioxide 26.3 BUN 19 Creatinine 1.0 Glucose 138 H Calcium 7.7 L Cardiac Enzymes 08/28/25 08/28/25 Range/Units 18:27 22:56 Total Creatine Kinase Not Performed. 19 L Troponin I < 0.020 (0.0-0.045) ng/mL Liver Function 08/28/25 Range/Units 18:27 Total Bilirubin 6.7 H (0.3-1.2) mg/dL AST 85 H (0-34) U/L ALT 42 (10-49) U/L Alkaline Phosphatase 164 H (46-116) U/L Albumin 2.7 L (3.4-4.8) gm/dL Urine 08/28/25 Range/Units 17:34 Urine Color Drk-Yellow A (Lt Yel-Yel) Urine Clarity Turbid A (Clear/Hazy) Urine pH 6.5 (5.0-7.0) Ur Specific [place] 1.012 (1.001-1.035) Urine Protein Trace (Neg - Trace) Urine Glucose (UA) Negative (Negative) Quality Measures Quality Measures VTE prophylaxis Advance care planning discussed with:: patient Medications Home Medications and Allergies Home Medications ?Medication ?Instructions ?Recorded ?Confirmed ?Type No Known Home Medications 08/29/25 08/29/25 History Allergies Allergy/AdvReac Type Severity Reaction Status Date / Time No Known Allergies Allergy Verified 08/28/25 16:23 Visit Medications Acetaminophen (Acetaminophen 325 Mg Tablet) 650 mg PO Q6H PRN PRN Reason: Fever >100.4 Stop: 09/28/25 01:19 Diazepam (Diazepam Inj 5 Mg/Ml Vial 2 Ml) 5 mg IVP X1 PRN PRN Reason: Breakthrough Agitation Heparin Sodium (Porcine) (Heparin Sod Inj 5000 Unit/Ml Vial) 7,250 unit 80 unit/kg (7250 unit) IV X1 ONE; Protocol Stop: 08/29/25 01:22 Heparin Sodium/Dextrose (Heparin In D5w Ivpb) 25,000 unit in 250 mls @ 16.329 mls/hr IV .[id number] ENRIQUE; Protocol Stop: 09/12/25 01:29 Ceftriaxone Sodium/Dextrose (Rocephin/D5w 1gm Iv Premix) 1 gm in 50 mls @ 100 mls/hr IV QDAY ENRIQUE Stop: 09/05/25 08:59 Lorazepam (Lorazepam 0.5 Mg Tablet) 0.5 mg PO Q4HR PRN PRN Reason: CIWA Score 2-6 Stop: 09/03/25 01:23 Lorazepam (Lorazepam 0.5 Mg Tablet) 1 mg PO Q4HR PRN PRN Reason: CIWA SCORE 7-11 Stop: 09/03/25 01:23 Lorazepam (Lorazepam 0.5 Mg Tablet) 2 mg PO Q4HR PRN PRN Reason: CIWA SCORE 12-15 Stop: 09/03/25 01:23 Discontinued Medications Acetaminophen (Acetaminophen 500 Mg Tablet) 1,000 mg PO X1 ONE Stop: 08/28/25 17:55 Last Admin: 08/28/25 18:32 Dose: Not Given Ceftriaxone Sodium/Dextrose (Rocephin/D5w 1gm Iv Premix) 1 gm in 50 mls @ 100 mls/hr IV X1 ONE Stop: 08/28/25 16:38 Last Infusion: 08/28/25 17:46 Dose: Infused Lactated Ringer's (Lactated Ringers) 1,000 mls @ 999 mls/hr IV .Q1H1M ONE Stop: 08/28/25 17:10 Last Infusion: 08/28/25 18:30 Dose: Infused Lactated Ringer's (Lactated Ringers) 1,000 mls @ 999 mls/hr IV .Q1H1M ONE Stop: 08/28/25 22:07 Last Infusion: 08/28/25 22:37 Dose: Infused Ceftriaxone Sodium/Dextrose (Rocephin/D5w 1gm Iv Premix) 1 gm in 50 mls @ 100 mls/hr IV QDAY ENRIQUE Stop: 09/05/25 01:22 Pantoprazole Sodium (Pantoprazole Inj 40 Mg Vial) 80 mg IVP X1 ONE Stop: 08/28/25 16:09 Last Admin: 08/28/25 17:17 Dose: 80 mg Thiamine HCl (Thiamine Inj 100 Mg/Ml Vial 2 Ml) 100 mg IVP X1 ONE Stop: 08/29/25 01:24 Assessment & Plan Plan Summary: 75-year-old male past medical history of alcoholism presented to the ED [facility] in the afternoon of 08/28/2025 after being bedridden for 4 weeks.? Patient is a poor historian.? He was reported to have been found down by a neighbor covered in his own feces 8 weeks ago after being intoxicated.? He was transferred to a bed where he has stayed for the past 4 weeks until presentation.? He was unable to ambulate for the past 8 weeks and reportedly did not eat or drink for the past 8 weeks. It was reported that when EMS arrived the patient was lying in bed covered with his own feces that were black. The patient was found to have UTI and a lactate of 2.4 which increased to 3.0.? On arrival the patient was tachycardic, febrile, and had a leukocytosis meeting 3/4 SIRS criteria with a suspected source of infection and the patient had lactic acidosis, meeting severe sepsis criteria. Patient was admitted for severe sepsis secondary to UTI. #Sepsis Secondary to #UTI #Leukocytosis #Lactic acidosis Patient presented with fever 101.0, pulse 117, WBC 15.7 meeting 3/4 SIRS criteria for sepsis Patient had a lactic acid 2.4 increased to 3.0, qualified for severe sepsis Suspected source is UTI. Urinalysis showed: Turbid, 2+ blood, 1+ bilirubin, 45 WBC, amorphous crystals, 3+ bacteria, leukocyte esterase positive Patient's BP has been stable and there is no evidence of end organ damage, creatinine and troponins are normal, no pulmonary edema Plan: Ceftriaxone 1 g daily Urine cultures pending Blood cultures pending Will determine whether or not to use IV maintenance fluids depending on the next lactic acid because the patient has ascites and liver failure and there is no echo on file (Echo ordered) #Hyperbilirubinemia #Cholelithiasis #Cirrhosis secondary to #Alcohol use disorder #Hypoalbuminemia #Mild Ascites T. bili 6.7, CTAP showed a cirrhotic 21 cm liver with irregular contour no evidence of CBD obstruction Elevated T. bili likely secondary to cirrhosis Patient mentioned that his last drink was 8 weeks ago No signs of withdrawal on exam: No tremors, no diaphoresis PT 21, INR 2.1, PTT 21.1, Albumin 2.7, Mild ascites MELD Score 22: 19.6% 3-month mortality [facility] Discriminant Function for Alcoholic Hepatitis: 47.2 Child Shahid: 13, class C, life expectancy 1-3 years, abdominal surgery perioperative mortality 82% Plan: CIWA protocol CIWA score 2-6: Ativan 0.5 mg Q 4 PRN CIWA score 7-11: Ativan 1 mg Q 4 PRN CIWA score 12-15: Ativan 2 mg Q 4 PRN Diazepam 5 mg IV push x 1 as needed for breakthrough agitation Folic acid 1 mg daily Patient received 100 mg IV push thiamine support services coordinator referral #New onset A-fib with RVR EKG showed A-fib RVR with a rate of 128 and QTc of 471, no acute ST segment changes. Patient does not take any medications nor has he seen a physician in many years CHADSVASC: 3 +1 (age 65-74) +1 (possible CHF history?, patient had mild prominence of the cardiac contour on chest x-ray) +1 (patient had BP 167/92) HASBLED: 5 +1 (hypertension) +1 (liver disease) +1 (high INR) +1 (age over 65) +1 (alcohol use) Plan: Patient received one-time dose of 8000 units of heparin Heparin drip 18 units per Kg per hour Echo ordered Cardiology consulted #Hyponatremia #Hypochloremia Sodium 126, chloride 90 Likely secondary to decreased oral intake versus volume depletion Patient has mild ascites but may require more fluids due to lactic acidosis and sepsis Plan: Patient started eating in the ED, will continue to encourage oral intake Will continue to monitor and use 0.9% normal saline for resuscitation if lactic acid uptrend #Hyperglycemia Presented with a glucose of 138, fingerstick was 245 Plan: Follow-up A1c #Acute normocytic anemia #Tarry stools Patient presented with a hemoglobin of 11.5, MCV 92 Per EMS the patient was covered in tarry stools when they arrived at his home FOBT was negative in the ED No suspicion for active bleeding at this time May be dilutional or secondary to nutritional deficiency secondary to alcohol use Plan: Transfuse if hemoglobin less than 7 #Incidental finding of 3 mm upper pole right renal calculus On CT abdomen pelvis Plan: No direct intervention at this time Hospital Maintenance: DVT ppx: Heparin drip Diet: Regular diet IV lines: Peripheral IVs Code status: Full code Dispo: Telemetry monitoring floor, started heparin drip, follow-up lactate, starting ceftriaxone for, cardiology consulted for A-fib. Patient was seen and discussed with my attending physician Dr. Reilly LANDEROS and my senior resident Dr Kait LANDEORS PGY-2. Mathew Pringle DO PGY-1. Attending Provider Attestation/Addendum After examination of the patient and review of the clinical data I feel that this patient needs admission to the hospital for further treatment/evaluation. Plan of care discussed with patient and is in agreement. I Rody Grover MD, attest that I was physically present for patterson portions of evaluation, and examined patient, labs and imagings and plan of care were discussed with IM residents team, and I agree with the findings and plans documented above.
[2025-08-29 01:53] LABS: Bilirubin,Direct 5.2 mg/dL (0.0-0.3); Thyroid Stimulating Hormone 3.58 uIU/mL (0.55-4.78)
[2025-08-29 01:54] LABS: Lactate (Lactic Acid) 1.6 mMol/L (0.4-2.0)
[2025-08-29 02:09] LABS: Basophils # (Auto) 0.1 Thou/mm3 (0.0-0.2); Basophils % (Auto) 1 % (0-2.5); Eosinophils # (Auto) 0.0 Thou/mm3 (0.0-0.5); Eosinophils % (Auto) 0 % (0-10); Hematocrit 30.1 % (41.0-53.0); Hemoglobin 10.4 g/dL (13.5-16.0); Immature Granulocytes Auto 0.30 Thou/mm3 (0.00-0.00); Lymphocytes # (Auto) 1.1 Thou/mm3 (1.0-4.8); Lymphocytes % (Auto) 8 % (10-50); Mean Corpuscular HGB Conc 34.6 g/dl (31.0-37.0); Mean Corpuscular Hemoglobin 31.5 pg (25.0-35.0); Mean Corpuscular Volume 91 fL (80-100); Monocytes # (Auto) 1.1 Thou/mm3 (0.0-0.8); Monocytes % (Auto) 7 % (0-12); Neutrophils # (Auto) 12.3 Thou/mm3 (1.8-7.7); Neutrophils % (Auto) 83 % (37-80); Nucleated Red Blood Cell # 0.00 Thou/mm3 (0.00-0.00); Nucleated Red Blood Cell % 0 /100 WBC (0); Platelet Count 308 Thou/mm3 (140-440); RDW Standard Deviation 58.5 fL (35.1-43.9); Red Blood Count 3.30 Miln/mm3 (4.50-5.90); White Blood Count 14.9 Thou/mm3 (3.8-10.6)
[2025-08-29] MEDS: THIAMINE INJ 100 MG/ML VIAL 2 ML IVP (02:18)
[2025-08-29] MEDS: METOPROLOL TARTRATE 25 MG TABLET PO (02:20)
[2025-08-29 02:26] LABS: Glucose Estimated Average 123 mg/dL (80-131); Hemoglobin A1C 5.9 % Hgb (4.8-6.0)
[2025-08-29 02:40] LABS: Alanine Aminotransferase 39 U/L (10-49); Albumin, Serum 2.8 gm/dL (3.4-4.8); Albumin/Globulin Ratio 0.9 (1.2-2.2); Alkaline Phosphatase 144 U/L (46-116); Anion Gap 8 (7-16); Aspartate Amino Transferase 77 U/L (0-34); BUN/Creatinine Ratio 23 Ratio (12-20); Bilirubin,Total 6.4 mg/dL (0.3-1.2); Blood Urea Nitrogen 25 mg/dL (9-23); Calcium 8.0 mg/dL (8.3-10.6); Calcium (Corrected) 9.0 mg/dL (8.5-10.1); Carbon Dioxide 31.2 mMol/L (20.0-31.0); Chloride 90 mMol/L (98-107); Creatinine (Component) 1.1 mg/dL (0.6-1.3); Estimated Creatinine Clearance 80.0 mL/min (>60); Globulin 3.2 gm/dL (2.3-3.5); Glucose 127 mg/dL (74-106); Magnesium 2.1 mg/dL (1.6-2.6); Osmolality,Calculated 265 (275-295); Potassium 4.4 mMol/L (3.4-5.1); Sodium 129 mMol/L (136-145); Total Protein 6.0 gm/dL (5.7-8.2); eGFR > 60 See Note
[2025-08-29 03:10] LABS: Cardiac Risk Estimate 19.0 RATIO (4.0-6.7); Cholesterol 98 mg/dL (132-200); HDL Cholesterol < 5 mg/dL (40-60); LDL Cholesterol,Calculated 58 mg/dL (0-130); Triglycerides 176 mg/dL (30-150)
[2025-08-29] MEDS: ALBUMIN HUMAN-KJDA 25% IVPB 25 GM/100 ML BTL IV ×2 (10:46→11:05)
[2025-08-29] MEDS: cefTRIAXone/D5w 1gm IV premix 1 GM/50 ML BAG IV (10:58)
[2025-08-29] MEDS: THIAMINE 100 MG TABLET PO (11:02)
[2025-08-29] MEDS: SPIRONOLACTONE 25 MG TABLET 100 MG PO (11:03)
[2025-08-29] MEDS: METOPROLOL SUCCINATE XL 25 MG TABCR 50 MG PO ×2 (11:03→20:28)
[2025-08-29] MEDS: FOLIC ACID 1 MG TABLET PO (11:04)
--- NOTE | 2025-08-29 18:08 | ESPR_ITS ---
Documentation for date of: 08/29/25 Subjective Subjective Interval history: 75-year-old male with previous history of alcoholism who was admitted overnight after being bedridden for 4 weeks.? Patient is a poor historian.? Apparently patient was transferred to bed where he stayed for a month after having been seen by a neighbor lying on the floor and covered in his feces. Patient met criteria for severe sepsis with tachycardia, fever, and leukocytosis, and LA 3.0 in the setting of a UTI. Received 2L of LR and CFX 1g. He was also in Afib with RVR, noted to be jaundiced with T bili 6.7. Last drink more than 8wk ago. Exam Vital Signs Temp Pulse Resp BP Pulse Ox O2 Del Method 97.4 F 112 H 20 95/62 96 Room Air 08/29/25 12:00 08/29/25 12:00 08/29/25 12:00 08/29/25 12:00 08/29/25 12:08/29/25 12:00 Narrative Exam General: Jaundiced, scleral icterus. Awake and in no acute distress. Conversational and non-toxic appearing. Neurologic: GCS 15. Alert and oriented x3, no gross neurological deficit, and patient able to move all 4 extremities. HEENT: Normocephalic, atraumatic, mucous membranes moist. Pupils reactive to light. Heart: Irregular rhythm, tachycardic in the 120s, no murmurs. Lungs: Clear to auscultation bilaterally with no wheezing or crackles. Abdomen: Firm, distended, Naidu sign negative. Minimal ascetic fluid wave. Nontender. No guarding or rebound tenderness. Extremities: Ecchymosis inferior to the right shoulder on the chest. No edema. 2+ radial and dorsalis pedis pulses bilaterally. Skin: Jaundiced. Warm. Dry. No rash or ecchymoses. Objective Labs 08/30/25 05:26 08/30/25 05:26 Labs: Laboratory Results - last 24 hr 08/28/25 08/28/25 08/28/25 17:34 18:27 20:16 WBC RBC Hgb Hct MCV MCH MCHC RDW Std Deviation Plt Count Neut % (Auto) Lymph % (Auto) Garden % (Auto) Eos % (Auto) Baso % (Auto) Neut # (Auto) Lymph # (Auto) Garden # (Auto) Eos # (Auto) Baso # (Auto) Immature Gran # (Auto) Absolute Nucleated RBC Immature Gran % Nucleated RBC % Sodium 126 L Potassium 4.6 Chloride 90 L Carbon Dioxide 26.3 Anion Gap 10 BUN 19 Creatinine 1.0 Estim Creat Clear Calc 72.2 eGFR > 60 BUN/Creatinine Ratio [address] Glu mg/dL Hemoglobin A1c Calculated Osmolality 257 L Lactic Acid 3.0 H Calcium 7.7 L Corrected Calcium 8.7 Phosphorus 3.1 Magnesium 2.2 Total Bilirubin 6.7 H Direct Bilirubin AST 85 H ALT 42 Alkaline Phosphatase 164 H Lactate Dehydrogenase Not Performed. Total Creatine Kinase Not Performed. Troponin I < 0.020 Total Protein 6.1 Albumin 2.7 L Globulin 3.4 Albumin/Globulin Ratio 0.8 L Triglycerides Cholesterol LDL Cholesterol, Calc HDL Cholesterol Cholesterol/HDL Ratio Lipase 46 Procalcitonin 1.50 H TSH Ur Collection Type Clean Catch Urine Color Drk-Yellow A Urine Clarity Turbid A Urine pH 6.5 Ur Specific [place] 1.012 Urine Protein Trace Urine Glucose (UA) Negative Urine Ketones Negative Urine Blood 2+ A Urine Nitrite Negative Urine Bilirubin 1+ A Urine Urobilinogen (Auto) 6.0 Ur Leukocyte Esterase Positive Urine RBC 3 Urine WBC 45 H Ur Squamous Epith Cells 0 Amorphous Crystals Present A Urine Bacteria 3+ A Ur Culture Indicated? Yes 08/28/25 08/29/25 22:56 01:51 WBC 14.9 H RBC 3.30 L Hgb 10.4 L Hct 30.1 L MCV 91 MCH 31.5 MCHC 34.6 RDW Std Deviation 58.5 H Plt Count 308 D Neut % (Auto) 83 H Lymph % (Auto) 8 L Garden % (Auto) 7 Eos % (Auto) 0 Baso % (Auto) 1 Neut # (Auto) 12.3 H Lymph # (Auto) 1.1 Garden # (Auto) 1.1 H Eos # (Auto) 0.0 Baso # (Auto) 0.1 Immature Gran # (Auto) 0.30 H Absolute Nucleated RBC 0.00 Immature Gran % 2 H Nucleated RBC % 0 Sodium 129 L Potassium 4.4 Chloride 90 L Carbon Dioxide 31.2 H Anion Gap 8 BUN 25 H Creatinine 1.1 Estim Creat Clear Calc 80.0 eGFR > 60 BUN/Creatinine Ratio 23 H Glucose [address] Glu mg/dL 123 Hemoglobin A1c 5.9 Calculated Osmolality 265 L Lactic Acid 1.6 Calcium 8.0 L Corrected Calcium 9.0 Phosphorus Magnesium 2.1 Total Bilirubin 6.4 H Direct Bilirubin 5.2 H AST 77 H ALT 39 Alkaline Phosphatase 144 H D Lactate Dehydrogenase Total Creatine Kinase 19 L Troponin I Total Protein 6.0 Albumin 2.8 L Globulin 3.2 Albumin/Globulin Ratio 0.9 L Triglycerides 176 H Cholesterol 98 L LDL Cholesterol, Calc 58 HDL Cholesterol < 5 L Cholesterol/HDL Ratio 19.0 H Lipase Procalcitonin TSH 3.58 Ur Collection Type Urine Color Urine Clarity Urine pH Ur Specific [place] Urine Protein Urine Glucose (UA) Urine Ketones Urine Blood Urine Nitrite Urine Bilirubin Urine Urobilinogen (Auto) Ur Leukocyte Esterase Urine RBC Urine WBC Ur Squamous Epith Cells Amorphous Crystals Urine Bacteria Ur Culture Indicated? Quality Measures Quality Measures VTE prophylaxis Advance care planning discussed with:: patient Assessment & Plan Assessment Current Active Medications: Generic Name Dose Route Start Last Admin Trade Name Freq PRN Reason Stop Dose Admin Acetaminophen 650 mg 08/29/25 01:20 Acetaminophen 325 Mg Tablet PO 09/28/25 01:19 Q6H PRN Fever >100.4 Diazepam 5 mg 08/29/25 01:24 Diazepam Inj 5 Mg/Ml Vial 2 Ml IVP X1 PRN Breakthrough Agitation Folic Acid 1 mg 08/29/25 09:00 08/29/25 11:04 Folic Acid 1 Mg Tablet PO 09/28/25 08:59 1 mg QDAY ENRIQUE Administration Ceftriaxone Sodium/Dextrose 1 gm in 50 mls @ 100 mls/hr 08/29/25 09:00 08/29/25 10:58 Rocephin/D5w 1gm Iv Premix IV 09/05/25 08:59 100 mls/hr QDAY ENRIQUE Administration Albumin Human 25 gm in 100 mls @ 100 mls/hr 08/29/25 08:30 08/29/25 11:05 Albuminex 25% Ivpb IV 09/01/25 08:29 100 mls/hr QDAY ENRIQUE Administration Lactulose 10 gm 08/29/25 01:45 Lactulose Syrup 20 Gm/30 Ml Udc PO 09/28/25 01:44 PRN ENRIQUE Protocol Lorazepam 0.5 mg 08/29/25 01:24 Lorazepam 0.5 Mg Tablet PO 09/03/25 01:23 Q4HR PRN CIWA Score 2-6 Lorazepam 1 mg 12/14/25 01:24 Lorazepam 0.5 Mg Tablet PO 09/03/25 01:23 Q4HR PRN CIWA SCORE 7-11 Lorazepam 2 mg 08/29/25 01:24 Lorazepam 0.5 Mg Tablet PO 09/03/25 01:23 Q4HR PRN CIWA SCORE 12-15 Metoprolol Succinate 50 mg 08/29/25 09:00 08/29/25 11:03 Metoprolol Succinate Xl 25 Mg Tabcr PO 09/28/25 08:59 50 mg QDAY ENRIQUE Administration Spironolactone 100 mg 08/29/25 09:00 08/29/25 11:03 Spironolactone 25 Mg Tablet PO 09/28/25 08:59 100 mg QDAY ENRIQUE Administration Thiamine HCl 100 mg 08/29/25 09:00 08/29/25 11:02 Thiamine 100 Mg Tablet PO 09/28/25 08:59 100 mg QDAY ENRIQUE Administration Plan 75-year-old male past medical history of alcoholism presented to the ED [facility] in the afternoon of 08/28/2025 after being bedridden for 4 weeks.? Patient is a poor historian.? He was reported to have been found down by a neighbor covered in his own feces 8 weeks ago after being intoxicated.? He was transferred to a bed where he has stayed for the past 4 weeks until presentation.? He was unable to ambulate for the past 8 weeks and reportedly did not eat or drink for the past 8 weeks. It was reported that when EMS arrived the patient was lying in bed covered with his own feces that were black. ? The patient was found to have UTI and a lactate of 2.4 which increased to 3.0.? On arrival the patient was tachycardic, febrile, and had a leukocytosis meeting 3/4 SIRS criteria with a suspected source of infection and the patient had lactic acidosis, meeting severe sepsis criteria. ? Patient was admitted for severe sepsis secondary to UTI. ? ? #Sepsis Secondary to #UTI #Leukocytosis #Lactic acidosis * Patient presented with fever 101.0, pulse 117, WBC 15.7 meeting 3/4 SIRS criteria for sepsis * Patient had a lactic acid 2.4 increased to 3.0, qualified for severe sepsis * Suspected source is UTI. Urinalysis showed: Turbid, 2+ blood, 1+ bilirubin, 45 WBC, amorphous crystals, 3+ bacteria, leukocyte esterase positive * Patient's BP been stable and there is no evidence of end organ damage, creatinine and troponins are normal, no pulmonary edema Plan: * Ceftriaxone 1 g daily * Urine cultures pending * Blood cultures pending * Will determine whether or not to use IV maintenance fluids depending on the next lactic acid because the patient has ascites and liver failure and there is no echo on file (Echo ordered) ? #Hyperbilirubinemia #Cholelithiasis #Cirrhosis secondary to #Alcohol use disorder #Hypoalbuminemia #Mild Ascites * T. bili 6.7, CTAP showed a cirrhotic 21 cm liver with irregular contour no evidence of CBD obstruction * Elevated T. bili likely secondary to cirrhosis * Patient mentioned that his last drink was 8 weeks ago * No signs of withdrawal on exam: No tremors, no diaphoresis * PT 21, INR 2.1, PTT 21.1, Albumin 2.7, Mild ascites * MELD Score 22: 19.6% 3-month mortality * [facility] Discriminant Function for Alcoholic Hepatitis: 47.2 * Child Shahid: 11, class C, life expectancy 1-3 years, abdominal surgery perioperative mortality 82% ? Plan: * CIWA protocol * CIWA score 2-6: Ativan 0.5 mg Q 4 PRN * CIWA score 7-11: Ativan 1 mg Q 4 PRN * CIWA score 12-15: Ativan 2 mg Q 4 PRN * Diazepam 5 mg IV push x 1 as needed for breakthrough agitation * Spironolactone 100mg Qday * Albumen 25g Qday (08/29 -) * Folic acid 1 mg daily * Patient received 100 mg IV push thiamine * director of patient financial services referral ? #New onset A-fib with RVR * EKG showed A-fib RVR with a rate of 128 and QTc of 471, no acute ST segment changes. * Patient does not take any medications nor has he seen a physician in many years * CHADSVASC: 3 * +1 (age 65-74) * +1 (possible CHF history?, patient had mild prominence of the cardiac contour on chest x-ray) * +1 (patient had BP 167/92) * HASBLED: 5 * +1 (hypertension) * +1 (liver disease) * +1 (high INR) * +1 (age over 65) * +1 (alcohol use) ? Plan: * Patient received one-time dose of 8000 units of heparin * Heparin drip 18 units per Kg per hour * Metoprolol 50mg Qday * Echo ordered * Cardiology consulted ? #Hyponatremia #Hypochloremia * Sodium 126, chloride 90 * Likely secondary to decreased oral intake versus volume depletion * Patient has mild ascites but may require more fluids due to lactic acidosis and sepsis Plan: * Patient started eating in the ED, will continue to encourage oral intake * Will continue to monitor and use 0.9% normal saline for resuscitation if lactic acid uptrend #Hyperglycemia * Presented with a glucose of 138, fingerstick was 245 Plan: * Follow-up A1c #Acute normocytic anemia #Tarry stools * Patient presented with a hemoglobin of 11.5, MCV 92 * Per EMS thepatient was covered in tarry stools when they arrived at his home * FOBT was negative in the ED * No suspicion for active bleeding at this time * May be dilutional or secondary to nutritional deficiency secondary to alcohol use Plan: * Transfuse if hemoglobin less than 7 #Incidental finding of 3 mm upper pole right renal calculus * On CT abdomen pelvis Plan: * No direct intervention at this time Hospital Maintenance: DVT ppx: Heparin drip Diet: Regular diet IV lines: Peripheral IVs Code status: Full code Dispo: Telemetry monitoring floor, started heparin drip, follow-up lactate, starting ceftriaxone for, cardiology consulted for A-fib. This case was discussed with my attending physician, Dr. Wall, and senior resident, Dr Sterling. Even though this this note was carefully revised there may still be minor errors in blueprint maker due to voice recognition software. Devika Yates, DO PGY I Senior Resident Attestation: I discussed with and supervised the digital intern physician involved in the care of this patient. I personally saw and examined the patient and discussed the assessment and plan with the entire medicine team, including my attending. I agree with the assessment and plan as documented above. Bill Sterling MD PGY3 Internal Medicine Attending Provider Attestation/Addendum 75-year-old male patient with alcohol use disorder was admitted for sepsis secondary to UTI and was also found to have A-fib with RVR. The patient will continue on treatment for UTI. The patient has urinary calculus right renal pole. No evidence of obstruction reported. CT scan also mentions cirrhosis with mild ascites
[2025-08-29] MEDS: INSULIN DEGLUDEC 5 UNIT/0.05 ML (PER 5 UNITS) SC (20:25)
[2025-08-29] MEDS: INSULIN LISPRO (AdmeLOG) 1 UNIT/0.01 ML UNIT SC (20:27)
--- NOTE | 2025-08-29 23:30 | ESCONSULT_ITS ---
RE: GIANCARLO SCHUMACHER : 1950 DATE OF CONSULTATION: 08/29/2025 CONSULTING PHYSICIAN: Hospitalist and resident physician team and Mathew Pringle MD. REASON FOR CONSULTATION: Evaluation of atrial fibrillation. HISTORY OF PRESENT ILLNESS: The patient is a 75-year-old male with past medical history of chronic alcohol abuse intake, binge drinking for more than 20 years or so, poor historian. Came to the hospital after alcohol intoxication and altered mental status. He fell about 8 weeks ago on the right shoulder and right side of the body, also fell again. He presented to the hospital August 28, after being bedridden for about 3 or 4 weeks. Apparently, he is not doing well overall after being intoxicated. Patient was brought to the hospital with general weakness and fatigue. Initial assessment showed that the patient did have elevated lactate levels, possible UTI, tachycardic, febrile, patient was in atrial fibrillation. SIRS criteria and IV fluids and antibiotics were started empirically for sepsis protocol. Bilirubin went up, initially was 6.7, is coming down slowly. Patient did have cirrhosis of the liver on ultrasound examination and cholelithiasis with no evidence of acute cholecystitis. The patient says he drinks heavily, admits binge drinking but apparently drinks regularly, when he drinks he drinks heavily. 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 Patient does drink heavy alcohol consumption but no history of smoking or drug use. PAST SURGICAL HISTORY: History of rotator cuff repair surgery, no other history. PAST MEDICAL HISTORY: Not available, patient says he never goes to the doctor for many years. FAMILY HISTORY: Positive that father had atrial fibrillation, mother also had cardiac problems. REVIEW OF SYSTEMS: CARDIOVASCULAR: No significant chest pain, does not feel any irregular heartbeats. GASTROINTESTINAL: No nausea, no vomiting. GENITOURINARY: No frequency, no dysuria. CLEAT FEEDER: No neurologic symptoms, no previous strokes. PHYSICAL EXAMINATION: GENERAL: Well-nourished male, alert, awake, in no acute distress. VITAL SIGNS: Heart rate is 105, irregular; respirations 24, temperature 98.6, BP 120/60, pulse ox 97% room air saturation. HEENT: Head is atraumatic, normocephalic. Eyes showed jaundice and scleral icterus seen __ pale. ENT: Normal. NECK: Supple, no JVD. CHEST AND LUNGS: Decreased breath sounds overall. HEART: S1 and S2 irregularly irregular, atrial fibrillation, rate of 105-110. 1/6 systolic murmur at the apex. ABDOMEN: Thin and soft, no tenderness, no organomegaly. No obvious ascites. EXTREMITIES: Showed some ecchymosis in the right shoulder where he fell. Distal pulses are 2+ bilaterally. Extremities showed mild edema. AND RECTAL: Not performed. CLEAT FEEDER: DIAGNOSTIC DATA: Electrocardiogram showed atrial fibrillation with nonspecific ST-T changes. Cardiac enzymes were negative. Hemoglobin is 10.4, creatinine 1.1. Bilirubin on admission was elevated. Elevated direct bilirubin. Total bilirubin 6.7. Liver functions normal except mild alkaline phosphatase elevation. IMPRESSION: 1. Atrial fibrillation, initially rapid ventricular response, now appears to be controlled with metoprolol 50 daily. In fact, CHADS-VASc score only 2. Age maybe questionable hypertension. HAS-BLED score is high at 5. PT/INR on admission was abnormal because of liver disease. The patient is recommended to continue rate control for now, metoprolol 50 mg daily appears to be controlling heart rate well, might increase to 100 mg daily. Do not recommend any antiarrhythmic drug therapy since he is not symptomatic. 2. Excellent echocardiogram is completed, showed evidence of normal left ventricular function, hyperdynamic ventricle, no significant left atrial enlargement, no valvular heart disease. 3. Hyponatremia. 4. Anemia secondary to chronic disease. 5. Cirrhosis of the liver. 6. Cholelithiasis. 7. Incidental finding of right lower renal calculus. RECOMMENDATION AND DISCUSSION: Patient is a 75-year-old male who never had cardiac problems or does not go to any physician, admitted to the hospital with general weakness, alcohol withdrawal. Patient clearly has binge drinking habit, has abnormal liver function test including bilirubin elevation, possibly liver disease, cirrhosis of the liver. Patient has atrial fibrillation, possibly new onset versus chronic, most likely chronic AFib since he is asymptomatic. For now, do not see need for anticoagulation since the CHADS-VASc score is only 2 barely and risk of bleeding is quite high because of liver disease, cirrhosis of the liver, and recommendation will be to not to anticoagulate but just give him metoprolol 50 mg daily for rate control. Echo is already completed. Most likely the patient's AFib is due to alcohol related illness, but he surprisingly does not have any cardiomyopathy. We will recommend continuing metoprolol 50 mg daily. I will be glad to follow him as an outpatient in my office, make more recommendation after discharge. For now, no need for antiarrhythmic drug therapy such as amiodarone, considering liver disease I would avoid that. Might consider sotalol at a later date, for now we will leave him on metoprolol succinate 50 mg daily for good rate control, may increase to 100 mg daily if necessary and tolerated. I would like to thank for referring this patient for cardiovascular evaluation. I will be glad to follow the patient with you. DT: 22:55:19 TT: 23:29:00 Ref: [id number] - TID: [id number] MTDD
[2025-08-30] VITALS (8 sets, daily range): BP systolic 107–160; BP diastolic 73–98; PULSE 91–130; RESP 14–22; TEMP 36.2–37; O2SAT 95–96; BMI 11.0
[2025-08-30 06:24] LABS: Basophils # (Auto) 0.1 Thou/mm3 (0.0-0.2); Basophils % (Auto) 1 % (0-2.5); Eosinophils # (Auto) 0.1 Thou/mm3 (0.0-0.5); Eosinophils % (Auto) 0 % (0-10); Hematocrit 28.5 % (41.0-53.0); Hemoglobin 9.7 g/dL (13.5-16.0); Immature Granulocytes Auto 0.26 Thou/mm3 (0.00-0.00); Lymphocytes # (Auto) 1.0 Thou/mm3 (1.0-4.8); Lymphocytes % (Auto) 7 % (10-50); Mean Corpuscular HGB Conc 34.0 g/dl (31.0-37.0); Mean Corpuscular Hemoglobin 31.4 pg (25.0-35.0); Mean Corpuscular Volume 92 fL (80-100); Monocytes # (Auto) 1.0 Thou/mm3 (0.0-0.8); Monocytes % (Auto) 7 % (0-12); Neutrophils # (Auto) 11.5 Thou/mm3 (1.8-7.7); Neutrophils % (Auto) 82 % (37-80); Nucleated Red Blood Cell # 0.00 Thou/mm3 (0.00-0.00); Nucleated Red Blood Cell % 0 /100 WBC (0); Platelet Count 395 Thou/mm3 (140-440); RDW Standard Deviation 60.0 fL (35.1-43.9); Red Blood Count 3.09 Miln/mm3 (4.50-5.90); White Blood Count 14.0 Thou/mm3 (3.8-10.6)
[2025-08-30 07:05] LABS: Alanine Aminotransferase 38 U/L (10-49); Albumin, Serum 2.7 gm/dL (3.4-4.8); Albumin/Globulin Ratio 0.8 (1.2-2.2); Alkaline Phosphatase 147 U/L (46-116); Anion Gap 9 (7-16); Aspartate Amino Transferase 88 U/L (0-34); BUN/Creatinine Ratio 21 Ratio (12-20); Bilirubin,Total 5.6 mg/dL (0.3-1.2); Blood Urea Nitrogen 25 mg/dL (9-23); Calcium 7.6 mg/dL (8.3-10.6); Calcium (Corrected) 8.6 mg/dL (8.5-10.1); Carbon Dioxide 31.8 mMol/L (20.0-31.0); Chloride 91 mMol/L (98-107); Creatinine (Component) 1.2 mg/dL (0.6-1.3); Estimated Creatinine Clearance 75.9 mL/min (>60); Globulin 3.3 gm/dL (2.3-3.5); Glucose 190 mg/dL (74-106); Magnesium 2.0 mg/dL (1.6-2.6); Osmolality,Calculated 273 (275-295); Potassium 4.5 mMol/L (3.4-5.1); Sodium 132 mMol/L (136-145); Total Protein 6.0 gm/dL (5.7-8.2); eGFR > 60 See Note
[2025-08-30] MEDS: METOPROLOL SUCCINATE XL 25 MG TABCR 100 MG PO (08:56)
[2025-08-30] MEDS: THIAMINE 100 MG TABLET PO (08:57)
[2025-08-30] MEDS: SPIRONOLACTONE 25 MG TABLET 100 MG PO (08:57)
[2025-08-30] MEDS: FOLIC ACID 1 MG TABLET PO (08:58)
[2025-08-30] MEDS: ALBUMIN HUMAN-KJDA 25% IVPB 25 GM/100 ML BTL IV (08:58)
[2025-08-30] MEDS: cefTRIAXone/D5w 1gm IV premix 1 GM/50 ML BAG IV (08:58)
--- NOTE | 2025-08-30 11:55 | PC.SS ---
TOP CASE ASSEMBLER confirmed with patient plan to transition to SNF upon discharge. No preferred SNF identified.
[2025-08-30 13:39] LABS: Hepatitis A Antibody IgM Non Reactive (Non React); Hepatitis B Core Antibody IgM Non Reactive (Non React); Hepatitis B Surface Antigen Non Reactive (Non React); Hepatitis C Antibody Non Reactive (Non React)
--- NOTE | 2025-08-30 15:02 | ESPR_ITS ---
Documentation for date of: 08/30/25 Subjective Subjective Interval history: Patient was seen and examined at bedside. No acute events took place overnight. Patient reports feeling good, denies fevers, chest pain, palpitations, or dysuria.? Admits to urinary frequency. Patient is not established with any PCP, and will need to follow-up at [facility] after discharge. He had been bedbound for 3 weeks prior to presentation, during which time he was unable to complete ADL independently.? Patient declined SNF, and will need to go to rehab after PT. Tele Afib with HR 110's VSS BP 115/77, HR 107 2 BM (large + moderate) CBC WBC 14, Na 132, osm 273 Exam Vital Signs Temp Pulse Resp BP Pulse Ox O2 Del Method 97.9 F 100 22 H 152/97 H 95 Room Air 08/30/25 12:00 08/30/25 12:00 08/30/25 12:00 08/30/25 12:00 08/30/25 12:00 08/30/25 12:00 Narrative Exam General: Jaundiced, scleral icterus. Awake and in no acute distress. Conversational and non-toxic appearing. Neurologic: GCS 15. Alert and oriented x3, no gross neurological deficit, and patient able to move all 4 extremities. HEENT: Normocephalic, atraumatic, mucous membranes moist. Pupils reactive to light. Heart: Irregular rhythm, tachycardic in the 110s, no murmurs. Lungs: Clear to auscultation bilaterally with no wheezing or crackles. Abdomen: Firm, distended, Naidu sign negative. Minimal ascetic fluid wave. Nontender. No guarding or rebound tenderness. Extremities: Ecchymosis inferior to the right shoulder on the chest. No edema. 2+ radial and dorsalis pedis pulses bilaterally. Skin: Jaundiced. Warm. Dry. No rash or ecchymoses. Objective Labs 09/01/25 04:52 09/01/25 04:52 Labs: Laboratory Results - last 24 hr 08/30/25 05:26 WBC 14.0 H RBC 3.09 L Hgb 9.7 L Hct 28.5 L MCV 92 MCH 31.4 MCHC 34.0 RDW Std Deviation 60.0 H Plt Count 395 D Neut % (Auto) 82 H Lymph % (Auto) 7 L [place] % (Auto) 7 Eos % (Auto) 0 Baso % (Auto) 1 Neut # (Auto) 11.5 H Lymph # (Auto) 1.0 [place] # (Auto) 1.0 H Eos # (Auto) 0.1 Baso # (Auto) 0.1 Immature Gran # (Auto) 0.26 H Absolute Nucleated RBC 0.00 Immature Gran % 2 H Nucleated RBC % 0 Sodium 132 L Potassium 4.5 Chloride 91 L Carbon Dioxide 31.8 H Anion Gap 9 BUN 25 H Creatinine 1.2 Estim Creat Clear Calc 75.9 eGFR > 60 BUN/Creatinine Ratio 21 H Glucose 190 H D Calculated Osmolality 273 L Calcium 7.6 L Corrected Calcium 8.6 Magnesium 2.0 Total Bilirubin 5.6 H D AST 88 H ALT 38 Alkaline Phosphatase 147 H Total Protein 6.0 Albumin 2.7 L Globulin 3.3 Albumin/Globulin Ratio 0.8 L Hepatitis A IgM Ab Non Reactive Hep Bs Antigen Non Reactive Hep B Core IgM Ab Non Reactive Hepatitis C Antibody Non Reactive Quality Measures Quality Measures VTE prophylaxis Advance care planning discussed with:: patient Assessment & Plan Assessment Current Active Medications: Generic Name Dose Route Start Last Admin Trade Name Freq PRN Reason Stop Dose Admin Acetaminophen 650 mg 08/29/25 01:20 Acetaminophen 325 Mg Tablet PO 09/28/25 01:19 Q6H PRN Fever >100.4 Dextrose 25 ml 08/29/25 18:50 Dextrose 50%-Water Inj 50 Ml Syringe IV 09/28/25 18:49 Q15MIN PRN BG 50-70 responsive npo pt Dextrose 50 ml 08/29/25 18:50 Dextrose 50%-Water Inj 50 Ml Syringe IV 09/28/25 18:49 Q15MIN PRN BG <50 OR BG <70 & pt unresponsive Diazepam 5 mg 08/29/25 01:24 Diazepam Inj 5 Mg/Ml Vial 2 Ml IVP X1 PRN Breakthrough Agitation Folic Acid 1 mg 08/29/25 09:00 08/30/25 08:58 Folic Acid 1 Mg Tablet PO 09/28/25 08:59 1 mg QDAY ENRIQUE Administration Glucagon 1 mg 08/29/25 18:50 Glucagon Inj 1 Mg Vial IM Q15MIN PRN BG <70, and no IV access Ceftriaxone Sodium/Dextrose 1 gm in 50 mls @ 100 mls/hr 08/29/25 09:00 08/30/25 08:58 Rocephin/D5w 1gm Iv Premix IV 09/05/25 08:59 100 mls/hr QDAY ENRIQUE Administration Albumin Human 25 gm in 100 mls @ 100 mls/hr 08/29/25 08:30 08/30/25 08:58 Albuminex 25% Ivpb IV 09/01/25 08:29 100 mls/hr QDAY ENRIQUE Administration Insulin Degludec 5 unit 08/29/25 21:00 08/29/25 20:25 Insulin Degludec 5 Unit/0.05 Ml (Per 5 Units) SC 09/28/25 20:59 5 unit HS ENRIQUE Administration Insulin Human Lispro 0 unit 08/29/25 21:00 08/30/25 13:10 Insulin Lispro (Admelog) 1 Unit/0.01 Ml Unit SC 09/28/25 20:59 Not Given ACHS ENRIQUE Protocol Lactulose 10 gm 08/30/25 21:00 Lactulose Syrup 20 Gm/30 Ml Udc PO 09/29/25 20:59 BID ENRIQUE Protocol Lorazepam 0.5 mg 08/29/25 01:24 Lorazepam 0.5 Mg Tablet PO 09/03/25 01:23 Q4HR PRN CIWA Score 2-6 Lorazepam 1 mg 08/29/25 01:24 Lorazepam 0.5 Mg Tablet PO 09/03/25 01:23 Q4HR PRN CIWA SCORE 7-11 Lorazepam 2 mg 08/29/25 01:24 Lorazepam 0.5 Mg Tablet PO 09/03/25 01:23 Q4HR PRN CIWA SCORE 12-15 Metoprolol Succinate 100 mg 08/30/25 09:00 08/30/25 08:56 Metoprolol Succinate Xl 25 Mg Tabcr PO 09/29/25 08:59 100 mg QDAY ENRIQUE Administration Spironolactone 100 mg 08/29/25 09:00 08/30/25 08:57 Spironolactone 25 Mg Tablet PO 09/28/25 08:59 100 mg QDAY ENRIQUE Administration Thiamine HCl 100 mg 08/29/25 09:00 08/30/25 08:57 Thiamine 100 Mg Tablet PO 09/28/25 08:59 100 mg QDAY ENRIQUE Administration Plan 75-year-old male past medical history of alcoholism presented to the ED BIBA in the afternoon of 08/28/2025 after being bedridden for 4 weeks.? Patient is a poor historian.? He was reported to have been found down by a neighbor covered in his own feces 8 weeks ago after being intoxicated.? He was transferred to a bed where he has stayed for the past 4 weeks until presentation.? He was unable to ambulate for the past 8 weeks and reportedly did not eat or drink for the past 8 weeks. It was reported that when EMS arrived the patient was lying in bed covered with his own feces that were black. ? The patient was found to have UTI and a lactate of 2.4 which increased to 3.0.? On arrival the patient was tachycardic, febrile, and had a leukocytosis meeting 3/4 SIRS criteria with a suspected source of infection and the patient had lactic acidosis, meeting severe sepsis criteria. ? Patient was admitted for severe sepsis secondary to UTI. ? ? #Sepsis Secondary to #UTI #Leukocytosis #Lactic acidosis * Patient presented with fever 101.0, pulse 117, WBC 15.7 meeting 3/4 SIRS criteria for sepsis * Patient had a lactic acid 2.4 increased to 3.0, qualified for severe sepsis * Suspected source is UTI. Urinalysis showed: Turbid, 2+ blood, 1+ bilirubin, 45 WBC, amorphous crystals, 3+ bacteria, leukocyte esterase positive * Patient's BP been stable and there is no evidence of end organ damage, creatinine and troponins are normal, no pulmonary edema * 08/30: While patient meets 3/4 SIRS criteria with leukocytosis, tachycardia, and tachypnea, no signs of endorgan damage persist.? Sepsis resolved. * PT 21, INR 2.1, and APTT 21.1 * B ctx negative after 48h Plan: * Ceftriaxone 1 g daily * Urine cultures pending * Will determine whether or not to use IV maintenance fluids depending on the next lactic acid because the patient has ascites and liver failure and there is no echo on file (Echo ordered) ? #Hyperbilirubinemia #Cholelithiasis #Cirrhosis secondary to #Alcohol use disorder #Hypoalbuminemia #Mild Ascites * T. bili 6.7, CTAP showed a cirrhotic 21 cm liver with irregular contour no evidence of CBD obstruction * Elevated T. bili likely secondary to cirrhosis * Patient mentioned that his last drink was 8 weeks ago * No signs of withdrawal on exam: No tremors, no diaphoresis * PT 21, INR 2.1, PTT 21.1, Albumin 2.7, Mild ascites * MELD Score 22: 19.6% 3-month mortality * [facility] Al[facility]olic Hepatitis: 47.2 * Child Shahid: 13, class C, life expectancy 1-3 years, abdominal surgery perioperative mortality 82% * LA elevation may be attributable to cirrhosis. * 08/30 PT 21, INR 2.1, and APTT 21.1 ? Plan: * CIWA protocol * CIWA score 2-6: Ativan 0.5 mg Q 4 PRN * CIWA score 7-11: Ativan 1 mg Q 4 PRN * CIWA score 12-15: Ativan 2 mg Q 4 PRN * Diazepam 5 mg IV push x 1 as needed for breakthrough agitation * Spironolactone 100mg Qday * Albumen 25g Qday (08/29 -) * Folic acid 1 mg daily * Patient received 100 mg IV push thiamine * director of ancillary services referral ? #New onset A-fib with RVR * EKG showed A-fib RVR with a rate of 128 and QTc of 471, no acute ST segment changes. * Patient does not take any medications nor has he seen a physician in many years * CHADSVASC: 3 * +1 (age 65-74) * +1 (possible CHF history?, patient had mild prominence of the cardiac contour on chest x-ray) * +1 (patient had BP 167/92) * HASBLED: 5 * +1 (hypertension) * +1 (liver disease) * +1 (high INR) * +1 (age over 65) * +1 (alcohol use) * Echo (08/29) showed Normal LV and RV size and Fx. EF 60-65%. ? Plan: * Stopped Heparin drip 18 units per Kg per hour * Metoprolol 100mg Qday * Cardiology consulted ? #Hyponatremia #Hypochloremia * Sodium 126, chloride 90 * Likely secondary to decreased oral intake versus volume depletion * Patient has mild ascites but may require more fluids due to lactic acidosis and sepsis Plan: * Patient started eating in the ED, will continue to encourage oral intake * Will continue to monitor and use 0.9% normal saline for resuscitation if lactic acid uptrend #Hyperglycemia * Presented with a glucose of 138, fingerstick was 245 * Follow-up A1c 5.9 #Acute normocytic anemia #Tarry stools * Patient presented with a hemoglobin of 11.5, MCV 92 * Per EMS thepatient was covered in tarry stools when they arrived at his home * FOBT was negative in the ED * No suspicion for active bleeding at this time * May be dilutional or secondary to nutritional deficiency secondary to alcohol use Plan: * Transfuse if hemoglobin less than 7 #Incidental finding of 3 mm upper pole right renal calculus * On CT abdomen pelvis Plan: * No direct intervention at this time Hospital Maintenance: DVT ppx: Heparin drip Diet: Regular diet IV lines: Peripheral IVs Code status: Full code Dispo: Telemetry monitoring floor This case was discussed with my attending physician, Dr. Wall, and senior resident, Dr Sterling. Even though this this note was carefully revised there may still be minor errors in divorce attorney due to voice recognition software. Devika Yates, PGY I Senior Resident Attestation: The patient reported doing well this morning, and his heart rate was in 110s, and his metoprolol succinate dose was increased to 100 mg daily. We will follow-up on his culture results and the patient would likely need SNF during discharge. I discussed with and supervised the wedding planning internship physician involved in the care of this patient. I personally saw and examined the patient and discussed the assessment and plan with the entire medicine team, including my attending. I agree with the assessment and plan as documented above. Bill Sterling MD PGY3 Internal Medicine Attending Provider Attestation/Addendum Patient was seen and examined. He has no fever but wbc count is 14,000. He has afib with controlled HR. Electrolytes are WNL Hepatitis screen is negative. He has o hematuria, no CVA tenderness. He has no BM yet.
--- NOTE | 2025-08-30 15:33 | PC.SS ---
SNF referral submitted on [facility]. Awaiting responses.
[2025-08-30] MEDS: INSULIN LISPRO (AdmeLOG) 1 UNIT/0.01 ML UNIT SC (18:10)
--- NOTE | 2025-08-30 19:47 | ESPR_ITS ---
<Statement entered by Eli Chacon MD - 09/04/25 18:25> I personally examined evaluated this patient with resident physician PGY 2 Dr. Parikh patient has multiple medical problems came to the hospital atrial fibrillation possibly new onset but appears to be chronic does not go to any physician [id number] coronary 2 hence will not anticoagulate considering patient has cirrhosis of the liver increase risk of bleeding has blood score is high. Cardiac [place] stable not having chest pain shortness of breath or cardiac symptoms. Patient evaluated by resident physician I reviewed all the clinical findings as well as essential components of the note I agree with treatment plan recommendation as documented. Documentation for date of: 08/30/25 Subjective Subjective Interval history: Patient examined at bedside. Has no major complaints. Denies any chest pain or palpitations. Telemetry reviewed he remains in atrial fibrillation rate 90?100. Metoprolol dose was increased to 100 mg daily and remains on spironolactone 100 daily. Echo on 08/29 shows normal LV size and systolic function. EF 60-65%. RVSP 29. No anticoagulation indicated as [id number] score 2. Elevated has bled score of 4. Continue metoprolol 50 mg daily for rate control in setting of A-fib. Exam Vital Signs Temp Pulse Resp BP Pulse Ox O2 Del Method 98.1 F 96 16 133/73 H 95 Room Air 08/30/25 16:00 08/30/25 16:00 08/30/25 16:00 08/30/25 16:00 08/30/25 16:00 08/30/25 16:00 Narrative Exam General: Jaundiced, scleral icterus. Awake and in no acute distress. Conversational and non-toxic appearing. Neurologic: GCS 15. Alert and oriented x3, no gross neurological deficit, and patient able to move all 4 extremities. HEENT: Normocephalic, atraumatic, mucous membranes moist. Pupils reactive to light. Heart: Irregular rhythm, tachycardic in the 110s, no murmurs. Lungs: Clear to auscultation bilaterally with no wheezing or crackles. Abdomen: Firm, distended, Naidu sign negative. Minimal ascetic fluid wave. Nontender. No guarding or rebound tenderness. Extremities: Ecchymosis inferior to the right shoulder on the chest. No edema. 2+ radial and dorsalis pedis pulses bilaterally. Skin: Jaundiced. Warm. Dry. No rash or ecchymoses. Objective Labs 08/30/25 05:26 08/30/25 05:26 Labs: Laboratory Results - last 24 hr 08/30/25 05:26 WBC 14.0 H RBC 3.09 L Hgb 9.7 L Hct 28.5 L MCV 92 MCH 31.4 MCHC 34.0 RDW Std Deviation 60.0 H Plt Count 395 D Neut % (Auto) 82 H Lymph % (Auto) 7 L [place] % (Auto) 7 Eos % (Auto) 0 Baso % (Auto) 1 Neut # (Auto) 11.5 H Lymph # (Auto) 1.0 [place] # (Auto) 1.0 H Eos # (Auto) 0.1 Baso # (Auto) 0.1 Immature Gran # (Auto) 0.26 H Absolute Nucleated RBC 0.00 Immature Gran % 2 H Nucleated RBC % 0 Sodium 132 L Potassium 4.5 Chloride 91 L Carbon Dioxide 31.8 H Anion Gap 9 BUN 25 H Creatinine 1.2 Estim Creat Clear Calc 75.9 eGFR > 60 BUN/Creatinine Ratio 21 H Glucose 190 H D Calculated Osmolality 273 L Calcium 7.6 L Corrected Calcium 8.6 Magnesium 2.0 Total Bilirubin 5.6 H D AST 88 H ALT 38 Alkaline Phosphatase 147 H Total Protein 6.0 Albumin 2.7 L Globulin 3.3 Albumin/Globulin Ratio 0.8 L Hepatitis A IgM Ab Non Reactive Hep Bs Antigen Non Reactive Hep B Core IgM Ab Non Reactive Hepatitis C Antibody Non Reactive Quality Measures Quality Measures VTE prophylaxis Advance care planning discussed with:: patient Assessment & Plan Assessment Current Active Medications: Generic Name Dose Route Start Last Admin Trade Name Haseeb PRN Reason Stop Dose Admin Acetaminophen 650 mg 08/29/25 01:20 Acetaminophen 325 Mg Tablet PO 09/28/25 01:19 Q6H PRN Fever >100.4 Dextrose 25 ml 08/29/25 18:50 Dextrose 50%-Water Inj 50 Ml Syringe IV 09/28/25 18:49 Q15MIN PRN BG 50-70 responsive npo pt Dextrose 50 ml 08/29/25 18:50 Dextrose 50%-Water Inj 50 Ml Syringe IV 09/28/25 18:49 Q15MIN PRN BG <50 OR BG <70 & pt unresponsive Diazepam 5 mg 08/29/25 01:24 Diazepam Inj 5 Mg/Ml Vial 2 Ml IVP X1 PRN Breakthrough Agitation Folic Acid 1 mg 08/29/25 09:00 08/30/25 08:58 Folic Acid 1 Mg Tablet PO 09/28/25 08:59 1 mg QDAY ENRIQUE Administration Glucagon 1 mg 08/29/25 18:50 Glucagon Inj 1 Mg Vial IM Q15MIN PRN BG <70, and no IV access Ceftriaxone Sodium/Dextrose 1 gm in 50 mls @ 100 mls/hr 08/29/25 09:00 08/30/25 08:58 Rocephin/D5w 1gm Iv Premix IV 09/05/25 08:59 100 mls/hr QDAY ENRIQUE Administration Albumin Human 25 gm in 100 mls @ 100 mls/hr 08/29/25 08:30 08/30/25 08:58 Albuminex 25% Ivpb IV 09/01/25 08:29 100 mls/hr QDAY ENRIQUE Administration Insulin Degludec 5 unit 08/29/25 21:00 08/29/25 20:25 Insulin Degludec 5 Unit/0.05 Ml (Per 5 Units) SC 09/28/25 20:59 5 unit HS ENRIQUE Administration Insulin Human Lispro 0 unit 08/29/25 21:00 08/30/25 18:10 Insulin Lispro (Admelog) 1 Unit/0.01 Ml Unit SC 09/28/25 20:59 1 unit ACHS ENRIQUE Administration Protocol Lactulose 10 gm 08/30/25 21:00 Lactulose Syrup 20 Gm/30 Ml Udc PO 09/29/25 20:59 BID ENRIQUE Protocol Lorazepam 0.5 mg 08/29/25 01:24 Lorazepam 0.5 Mg Tablet PO 09/03/25 01:23 Q4HR PRN CIWA Score 2-6 Lorazepam 1 mg 08/29/25 01:24 Lorazepam 0.5 Mg Tablet PO 09/03/25 01:23 Q4HR PRN CIWA SCORE 7-11 Lorazepam 2 mg 08/29/25 01:24 Lorazepam 0.5 Mg Tablet PO 09/03/25 01:23 Q4HR PRN CIWA SCORE 12-15 Metoprolol Succinate 100 mg 08/30/25 09:00 08/30/25 08:56 Metoprolol Succinate Xl 25 Mg Tabcr PO 09/29/25 08:59 100 mg QDAY ENRIQUE Administration Spironolactone 100 mg 08/29/25 09:00 08/30/25 08:57 Spironolactone 25 Mg Tablet PO 09/28/25 08:59 100 mg QDAY ENRIQUE Administration Thiamine HCl 100 mg 08/29/25 09:00 08/30/25 08:57 Thiamine 100 Mg Tablet PO 09/28/25 08:59 100 mg QDAY ENRIQUE Administration Plan 75-year-old male past medical history of alcoholism presented to the ED BIBA in the afternoon of 08/28/2025 after being bedridden for 4 weeks.? He was reported to have been found down by a neighbor covered in his own feces 8 weeks ago after being intoxicated.? He was transferred to a bed where he has stayed for the past 4 weeks until presentation.?Patient was admitted for sepsis secondary to UTI. Cardiology was consulted for atrial fibrillation RVR. #New onset Atrial fibrillation, RVR No significant past medical history. Patient does not follow-up with any PCP or extractor operator in the past. Most likely A-fib due to alcohol consumption. No evidence of heart failure on exam or echo. Heart rate well-controlled after starting metoprolol. [id number] 2, has bled 5. PT/INR on admission was abnormal because of liver disease. Echo on 08/29 shows normal LV size and systolic function. EF 60-65%. RVSP 29. -continue metoprolol 100mg daily for rate control -no anticoagulation at this time due to elevated has bled score and low [id number]. #Excellent echocardiogram is completed, showed evidence of normal left ventricular function, hyperdynamic ventricle, no significant left atrial enlargement, no valvular heart disease. #Hyponatremia. #Anemia secondary to chronic disease. #Cirrhosis of the liver. #Cholelithiasis. #Incidental finding of right lower renal calculus. Primary care team to manage above conditions and ongoing care needs. The patient's management plan was discussed with my attending physician Dr. Chacon. Tiffanie Vaughn, PGY-2
[2025-08-30] MEDS: INSULIN DEGLUDEC 5 UNIT/0.05 ML (PER 5 UNITS) SC (21:23)
[2025-08-30] MEDS: LACTULOSE SYRUP 20 GM/30 ML UDC 10 GM PO (21:24)
[2025-08-31] VITALS (9 sets, daily range): BP systolic 124–162; BP diastolic 62–95; PULSE 79–126; RESP 16–19; TEMP 36.2–36.9; O2SAT 97–98
[2025-08-31 06:15] LABS: Basophils # (Auto) 0.1 Thou/mm3 (0.0-0.2); Basophils % (Auto) 1 % (0-2.5); Eosinophils # (Auto) 0.1 Thou/mm3 (0.0-0.5); Eosinophils % (Auto) 1 % (0-10); Hematocrit 30.2 % (41.0-53.0); Hemoglobin 10.1 g/dL (13.5-16.0); Immature Granulocytes Auto 0.29 Thou/mm3 (0.00-0.00); Lymphocytes # (Auto) 1.2 Thou/mm3 (1.0-4.8); Lymphocytes % (Auto) 9 % (10-50); Mean Corpuscular HGB Conc 33.4 g/dl (31.0-37.0); Mean Corpuscular Hemoglobin 31.2 pg (25.0-35.0); Mean Corpuscular Volume 93 fL (80-100); Monocytes # (Auto) 0.9 Thou/mm3 (0.0-0.8); Monocytes % (Auto) 7 % (0-12); Neutrophils # (Auto) 10.6 Thou/mm3 (1.8-7.7); Neutrophils % (Auto) 81 % (37-80); Nucleated Red Blood Cell # 0.00 Thou/mm3 (0.00-0.00); Nucleated Red Blood Cell % 0 /100 WBC (0); Platelet Count 455 Thou/mm3 (140-440); RDW Standard Deviation 60.4 fL (35.1-43.9); Red Blood Count 3.24 Miln/mm3 (4.50-5.90); White Blood Count 13.1 Thou/mm3 (3.8-10.6)
[2025-08-31 06:34] LABS: INR 1.2 (0.9-1.3); Partial Thromboplastin Time 28.2 Seconds (22.0-36.0); Prothrombin Time 12.6 Seconds (9.0-12.2)
[2025-08-31 06:50] LABS: Alanine Aminotransferase 41 U/L (10-49); Albumin, Serum 3.0 gm/dL (3.4-4.8); Albumin/Globulin Ratio 0.9 (1.2-2.2); Alkaline Phosphatase 156 U/L (46-116); Anion Gap 8 (7-16); Aspartate Amino Transferase 86 U/L (0-34); BUN/Creatinine Ratio 20 Ratio (12-20); Bilirubin,Total 5.1 mg/dL (0.3-1.2); Blood Urea Nitrogen 20 mg/dL (9-23); Calcium 7.9 mg/dL (8.3-10.6); Calcium (Corrected) 8.7 mg/dL (8.5-10.1); Carbon Dioxide 30.8 mMol/L (20.0-31.0); Chloride 96 mMol/L (98-107); Creatinine (Component) 1.0 mg/dL (0.6-1.3); Estimated Creatinine Clearance 88.4 mL/min (>60); Globulin 3.5 gm/dL (2.3-3.5); Glucose 121 mg/dL (74-106); Magnesium 2.0 mg/dL (1.6-2.6); Osmolality,Calculated 273 (275-295); Phosphorous 3.7 mg/dL (2.4-5.1); Potassium 4.7 mMol/L (3.4-5.1); Sodium 135 mMol/L (136-145); Total Protein 6.5 gm/dL (5.7-8.2); eGFR > 60 See Note
[2025-08-31 06:55] LABS: Glucose Estimated Average 120 mg/dL (80-131); Hemoglobin A1C 5.8 % Hgb (4.8-6.0)
[2025-08-31] MEDS: FOLIC ACID 1 MG TABLET PO (08:52)
[2025-08-31] MEDS: cefTRIAXone/D5w 1gm IV premix 1 GM/50 ML BAG IV (08:52)
[2025-08-31] MEDS: THIAMINE 100 MG TABLET PO (08:52)
[2025-08-31] MEDS: METOPROLOL SUCCINATE XL 25 MG TABCR 100 MG PO (08:52)
[2025-08-31] MEDS: LACTULOSE SYRUP 20 GM/30 ML UDC 10 GM PO (08:52)
[2025-08-31] MEDS: SPIRONOLACTONE 25 MG TABLET 100 MG PO (08:54)
[2025-08-31] MEDS: ALBUMIN HUMAN-KJDA 25% IVPB 25 GM/100 ML BTL IV (10:38)
--- NOTE | 2025-08-31 10:38 | PC.CC ---
Received call from Alivia FRANKLIN at 1007 regarding setting up home health for this patient who is planning to be discharged today. At 1025 spoke with Alivia since ptatient is not established with a pcp and unable to get home health at this time.
[2025-08-31] MEDS: METOPROLOL SUCCINATE XL 25 MG TABCR 50 MG PO (10:40)
--- NOTE | 2025-08-31 11:37 | PC.SS ---
Pt has been accepted to [facility]. SS has spoken to Candace from [facility] who on [facility] informed SS pt has $5,800 deductible which has to be paid before admission and 40% co pay per day for this year and in September pay amount begins again. SS has informed pt and he is unable to pay the amount. Pt is agreeable to Home Health Services but has not followed up with a PCP in years. SS provided pt with verbal options to follow up PCP and patient's choice is [facility]. SS has spoken to Kathi from [facility] and [facility] at 3:30[facility]. SS has provided pt with [facility] with appointment information. Pt states he has a walker at home. SS also spoke to Rachell who works for pt at home who is aware. SS has explained to Rachell and pt if HH is not an option due to pt not being established with PCP then pt can follow up with PCP to order HH. 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 Per Rachell, they can provide transportation home and will bring walker. SS was informed by transfer nurseLala HH is not an option due to pt not being established with PCP.
--- NOTE | 2025-08-31 11:42 | ESPR_ITS ---
Documentation for date of: 08/31/25 Subjective Subjective Interval history: Patient was seen and examined at bedside. No acute events took place overnight. Patient reports feeling good, denies fevers, chest pain, palpitations, or dysuria.? Admits to urinary frequency. PT Mikal attempted to stand and walk the patient 2d ago, however his gait was unstable and after a few sidewalks, the patient was taken back to bed. community placement worker was able to schedule an appointment with PCP on where the patient will be set up with home health. She also ordered a wheelchair. Patient is not established with any PCP, and will need to follow-up at [facility] after discharge. He had been bedbound for 3 weeks prior to presentation, during which time he was unable to complete ADL independently.? Patient declined SNF, and will need to go to rehab after PT. Patient persisted in A-fib with HR 110s-120s overnight WBC 13.1 (trending down), CMP T bili 5.1, and ALP 156, alb 3 Send on Augmentin Exam Vital Signs Temp Pulse Resp BP Pulse Ox O2 Del Method 97.2 F 126 H 17 126/62 98 Room Air 08/31/25 08:00 08/31/25 10:40 08/31/25 08:00 08/31/25 10:40 08/31/25 08:00 08/31/25 08:00 Narrative Exam General: Jaundiced, scleral icterus. Awake and in no acute distress. Conversational and non-toxic appearing. Neurologic: GCS 15. Alert and oriented x3, no gross neurological deficit, and patient able to move all 4 extremities. HEENT: Normocephalic, atraumatic, mucous membranes moist. Pupils reactive to light. Heart: Irregular rhythm, tachycardic in the 110s, no murmurs. Lungs: Clear to auscultation bilaterally with no wheezing or crackles. Abdomen: Firm, distended, Naidu sign negative. Minimal ascetic fluid wave. Nontender. No guarding or rebound tenderness. Extremities: Ecchymosis inferior to the right shoulder on the chest. No edema. 2+ radial and dorsalis pedis pulses bilaterally. Skin: Jaundiced. Warm. Dry. No rash or ecchymoses. Objective Labs 09/01/25 04:52 09/01/25 04:52 Labs: Laboratory Results - last 24 hr 08/30/25 08/31/25 05:26 05:41 WBC 13.1 H RBC 3.24 L Hgb 10.1 L Hct 30.2 L MCV 93 MCH 31.2 MCHC 33.4 RDW Std Deviation 60.4 H Plt Count 455 H D Neut % (Auto) 81 H Lymph % (Auto) 9 L [place] % (Auto) 7 Eos % (Auto) 1 Baso % (Auto) 1 Neut # (Auto) 10.6 H Lymph # (Auto) 1.2 [place] # (Auto) 0.9 H Eos # (Auto) 0.1 Baso # (Auto) 0.1 Immature Gran # (Auto) 0.29 H Absolute Nucleated RBC 0.00 Immature Gran % 2 H Nucleated RBC % 0 PT 12.6 H D INR 1.2 APTT 28.2 Sodium 135 L Potassium 4.7 Chloride 96 L Carbon Dioxide 30.8 Anion Gap 8 BUN 20 Creatinine 1.0 Estim Creat Clear Calc 88.4 eGFR > 60 BUN/Creatinine Ratio 20 Glucose [address] Glu mg/dL 120 Hemoglobin A1c 5.8 Calculated Osmolality 273 L Calcium 7.9 L Corrected Calcium 8.7 Phosphorus 3.7 Magnesium 2.0 Total Bilirubin 5.1 H D AST 86 H ALT 41 Alkaline Phosphatase 156 H Total Protein 6.5 Albumin 3.0 L Globulin 3.5 Albumin/Globulin Ratio 0.9 L Hepatitis A IgM Ab Non Reactive Hep Bs Antigen Non Reactive Hep B Core IgM Ab Non Reactive Hepatitis C Antibody Non Reactive Quality Measures Quality Measures VTE prophylaxis Advance care planning discussed with:: patient Assessment & Plan Assessment Current Active Medications: Generic Name Dose Route Start Last Admin Trade Name Haseeb PRN Reason Stop Dose Admin Acetaminophen 650 mg 08/29/25 01:20 Acetaminophen 325 Mg Tablet PO 09/28/25 01:19 Q6H PRN Fever >100.4 Dextrose 25 ml 08/29/25 18:50 Dextrose 50%-Water Inj 50 Ml Syringe IV 09/28/25 18:49 Q15MIN PRN BG 50-70 responsive npo pt Dextrose 50 ml 08/29/25 18:50 Dextrose 50%-Water Inj 50 Ml Syringe IV 09/28/25 18:49 Q15MIN PRN BG <50 OR BG <70 & pt unresponsive Diazepam 5 mg 08/29/25 01:24 Diazepam Inj 5 Mg/Ml Vial 2 Ml IVP X1 PRN Breakthrough Agitation Folic Acid 1 mg 08/29/25 09:00 08/31/25 08:52 Folic Acid 1 Mg Tablet PO 09/28/25 08:59 1 mg QDAY ENRIQUE Administration Glucagon 1 mg 08/29/25 18:50 Glucagon Inj 1 Mg Vial IM Q15MIN PRN BG <70, and no IV access Ceftriaxone Sodium/Dextrose 1 gm in 50 mls @ 100 mls/hr 08/29/25 09:00 08/31/25 08:52 Rocephin/D5w 1gm Iv Premix IV 09/05/25 08:59 100 mls/hr QDAY ENRIQUE Administration Albumin Human 25 gm in 100 mls @ 100 mls/hr 08/29/25 08:30 08/31/25 10:38 Albuminex 25% Ivpb IV 09/01/25 08:29 100 mls/hr QDAY ENRIQUE Administration Insulin Degludec 5 unit 08/29/25 21:00 08/30/25 21:23 Insulin Degludec 5 Unit/0.05 Ml (Per 5 Units) SC 09/28/25 20:59 5 unit HS ENRIQUE Administration Insulin Human Lispro 0 unit 08/29/25 21:00 08/31/25 11:30 Insulin Lispro (Admelog) 1 Unit/0.01 Ml Unit SC 09/28/25 20:59 Not Given ACHS ENRIQUE Protocol Lactulose 10 gm 08/30/25 21:00 08/31/25 08:52 Lactulose Syrup 20 Gm/30 Ml Udc PO 09/29/25 20:59 10 gm BID ENRIQUE Administration Protocol Lorazepam 0.5 mg 08/29/25 01:24 Lorazepam 0.5 Mg Tablet PO 09/03/25 01:23 Q4HR PRN CIWA Score 2-6 Lorazepam 1 mg 08/29/25 01:24 Lorazepam 0.5 Mg Tablet PO 09/03/25 01:23 Q4HR PRN CIWA SCORE 7-11 Lorazepam 2 mg 08/29/25 01:24 Lorazepam 0.5 Mg Tablet PO 09/03/25 01:23 Q4HR PRN CIWA SCORE 12-15 Metoprolol Succinate 100 mg 08/30/25 09:00 08/31/25 08:52 Metoprolol Succinate Xl 25 Mg Tabcr PO 09/29/25 08:59 100 mg QDAY ENRIQUE Administration Spironolactone 100 mg 08/29/25 09:00 08/31/25 08:54 Spironolactone 25 Mg Tablet PO 09/28/25 08:59 100 mg QDAY ENRIQUE Administration Thiamine HCl 100 mg 08/29/25 09:00 08/31/25 08:52 Thiamine 100 Mg Tablet PO 09/28/25 08:59 100 mg QDAY ENRIQUE Administration Plan 75-year-old male past medical history of alcoholism presented to the ED BIBA in the afternoon of 08/28/2025 after being bedridden for 4 weeks.? Patient is a poor historian.? He was reported to have been found down by a neighbor covered in his own feces 8 weeks ago after being intoxicated.? He was transferred to a bed where he has stayed for the past 4 weeks until presentation.? He was unable to ambulate for the past 8 weeks and reportedly did not eat or drink for the past 8 weeks. It was reported that when EMS arrived the patient was lying in bed covered with his own feces that were black. ? The patient was found to have UTI and a lactate of 2.4 which increased to 3.0.? On arrival the patient was tachycardic, febrile, and had a leukocytosis meeting 3/4 SIRS criteria with a suspected source of infection and the patient had lactic acidosis, meeting severe sepsis criteria. ? Patient was admitted for severe sepsis secondary to UTI. ? ? #SepsisSecondary to urinary tract infection, resolved #UTI Secondary to pansensitive E. coli #Leukocytosis #Lactic acidosis * Patient presented with fever 101.0, pulse 117, WBC 15.7 meeting 3/4 SIRS criteria for sepsis * Patient had a lactic acid 2.4 increased to 3.0, qualified for severe sepsis * Suspected source is UTI. Urinalysis showed: Turbid, 2+ blood, 1+ bilirubin, 45 WBC, amorphous crystals, 3+ bacteria, leukocyte esterase positive * Patient's BP been stable and there is no evidence of end organ damage, creatinine and troponins are normal, no pulmonary edema * 08/30: While patient meets 3/4 SIRS criteria with leukocytosis, tachycardia, and tachypnea, no signs of endorgan damage persist.? Sepsis resolved. * PT 21, INR 2.1, and APTT 21.1 * B ctx negative after 48h * U ctx grew pansensitive E coli Plan: * Plan to discharge the patient on Augmentin for total 7d of ABx treatment * Ceftriaxone 1 g daily (08/29 - * Urine cultures pending * Will determine whether or not to use IV maintenance fluids depending on the next lactic acid because the patient has ascites and liver failure and there is no echo on file (Echo ordered) ? #Hyperbilirubinemia #Cholelithiasis #Cirrhosis secondary to #Alcohol use disorder #Hypoalbuminemia #Mild Ascites * T. bili 6.7, CTAP showed a cirrhotic 21 cm liver with irregular contour no evidence of CBD obstruction * Elevated T. bili likely secondary to cirrhosis * Patient mentioned that his last drink was 8 weeks ago * No signs of withdrawal on exam: No tremors, no diaphoresis * PT 21, INR 2.1, PTT 21.1, Albumin 2.7, Mild ascites * MELD Score 22: 19.6% 3-month mortality * [facility] Discriminant Function for Alcoholic Hepatitis: 47.2 * Child Shahid: 13, class C, life expectancy 1-3 years, abdominal surgery perioperative mortality 82% * LA elevation may be attributable to cirrhosis. * 08/30 PT 21, INR 2.1, and APTT 21.1 ? Plan: * CIWA protocol * CIWA score 2-6: Ativan 0.5 mg Q 4 PRN * CIWA score 7-11: Ativan 1 mg Q 4 PRN * CIWA score 12-15: Ativan 2 mg Q 4 PRN * Diazepam 5 mg IV push x 1 as needed for breakthrough agitation * Spironolactone 100mg Qday * Albumen 25g Qday (08/29 -) * Folic acid 1 mg daily * Patient received 100 mg IV push thiamine * 911 emergency services dispatcher referral ? #A-fib * EKG showed A-fib RVR with a rate of 128 and QTc of 471, no acute ST segment changes. * Patient does not take any medications nor has he seen a physician in many years * CHADSVASC: 3 * +1 (age 65-74) * +1 (possible CHF history?, patient had mild prominence of the cardiac contour on chest x-ray) * +1 (patient had BP 167/92) * HASBLED: 5 * +1 (hypertension) * +1 (liver disease) * +1 (high INR) * +1 (age over 65) * +1 (alcohol use) * Echo (08/29) showed Normal LV and RV size and Fx. EF 60-65%. ? Plan: * Stopped Heparin drip 18 units per Kg per hour * Metoprolol 100mg Qday * Cardiology consulted ? #Hyponatremia, improving #Hypochloremia, improving * Sodium 135, chloride 96 * Likely secondary to decreased oral intake versus volume depletion * Patient has mild ascites but may require more fluids due to lactic acidosis and sepsis Plan: * Patient started eating in the ED, will continue to encourage oral intake * Will continue to monitor and use 0.9% normal saline for resuscitation if lactic acid uptrend #Hyperglycemia, resolved * Presented with a glucose of 138, fingerstick was 245 * A1c 5.9 #Acute normocytic anemia #Tarry stools * Patient presented with a hemoglobin of 11.5, MCV 92 * Per EMS thepatient was covered in tarry stools when they arrived at his home * FOBT was negative in the ED * No suspicion for active bleeding at this time * May be dilutional or secondary to nutritional deficiency secondary to alcohol use * 08/31 Hgb 10.1 Plan: * Transfuse if hemoglobin less than 7 #Incidental finding of 3 mm upper pole right renal calculus * On CT abdomen pelvis Plan: * No direct intervention at this time Hospital Maintenance: DVT ppx: Heparin drip Diet: Regular diet IV lines: Peripheral IVs Code status: Full code Dispo: Telemetry monitoring floor This case was discussed with my attending physician, Dr. Hamm, and senior resident, Dr Sterling. Even though this this note was carefully revised there may still be minor errors in aegis operations specialist due to voice recognition software. Devika Yates, DO PGY I Senior Resident Attestation: Patient was recommended SNF by the patient, but wished to proceed with home health PT. We will keep him 1 more day, and discharge tomorrow morning working with PT. I discussed with and supervised the international relations teacher physician involved in the care of this patient. I personally saw and examined the patient and discussed the assessment and plan with the entire medicine team, including my attending. I agree with the assessment and plan as documented above. Bill Sterling MD PGY3 Internal Medicine Attending Provider Attestation/Addendum I have discussed and was present for the essential components of the history, physical examination, diagnosis, and treatment plan with the resident. I agree with the patient's care as documented by the resident and amended herein by me. Prasanna Hamm DO. Although this document has been carefully reviewed, there may still be some phonetic and other typographical errors. These errors are purely grammatical due to imperfections in the software program and should not be construed in any way to compromise the substance of the patient's medical care during this visit.
--- NOTE | 2025-08-31 15:20 | PCS.ST ---
SS and 2 representatives from [facility] met with pt. Pt is is agreeable for SS to send inquiry to [facility] to check if he meets criteria for their program. SS also spoke to patient's employee Rachell who is aware. Pt and Rachell are aware if pt patient's health insurance does not cover the cost they can pay privately $90.00 per day. Pt is aware their program is 5 hours day, they provided transportation, actives, PT, and nurse onsite. SS has faxed inquiry to [facility] and they will contact pt if he is accepted.
--- NOTE | 2025-08-31 15:41 | ESPR_ITS ---
<Statement entered by Eli Chacon MD - 09/04/25 18:26> The patient continues to feel well I personally examined the patient with resident physician PGY 2 continues to remain A-fib somewhat faster heart rate despite 100 mg metoprolol we can add diltiazem CD as well combination to reduce his heart rate since the left and function observed we can add CCB as well. Since his [id number] or is not however not anticoagulating consider increased risk of bleeding due to liver disease continue to monitor the patient closely on telemetry for rate control once rate is controlled well we can discharge him home. I personally examined evaluate resident physician PGY 2 Dr. Parikh agree with treatment plan recommendation as documented Documentation for date of: 08/31/25 Subjective Subjective Interval history: 08/30: Patient examined at bedside. Has no major complaints. Denies any chest pain or palpitations. Telemetry reviewed he remains in atrial fibrillation rate 90?100. Metoprolol dose was increased to 100 mg daily and remains on spironolactone 100 daily. Echo on 08/29 shows normal LV size and systolic function. EF 60-65%. RVSP 29. No anticoagulation indicated as [id number] score 2. Elevated has bled score of 4. Continue metoprolol 50 mg daily for rate control in setting of A-fib. 08/31: Patient examined at bedside. Has no major complaints. No chest pain or palpitations. She reviewed he remains in atrial fibrillation rate elevated from yesterday tachycardic around 110. On blood pressure 162/95. Labs were reviewed creatinine has downtrended to 1.0. Currently on metoprolol succinate 100 mg daily for rate control. Patient can be started on p.o. diltiazem 120 mg daily for additional rate control. Exam Vital Signs Temp Pulse Resp BP Pulse Ox O2 Del Method 97.5 F 113 H 19 162/95 H 97 Room Air 08/31/25 12:00 08/31/25 12:00 08/31/25 12:00 08/31/25 12:00 08/31/25 12:08/31/25 12:00 Narrative Exam General: Jaundiced, scleral icterus. Awake and in no acute distress. Conversational and non-toxic appearing. Neurologic: GCS 15. Alert and oriented x3, no gross neurological deficit, and patient able to move all 4 extremities. HEENT: Normocephalic, atraumatic, mucous membranes moist. Pupils reactive to light. Heart: Irregular rhythm, tachycardic in the 110s, no murmurs. Lungs: Clear to auscultation bilaterally with no wheezing or crackles. Abdomen: Firm, distended, Naidu sign negative. Minimal ascetic fluid wave. Nontender. No guarding or rebound tenderness. Extremities: Ecchymosis inferior to the right shoulder on the chest. No edema. 2+ radial and dorsalis pedis pulses bilaterally. Skin: Jaundiced. Warm. Dry. No rash or ecchymoses. Objective Labs 08/31/25 05:41 08/31/25 05:41 Labs: Laboratory Results - last 24 hr 08/31/25 05:41 WBC 13.1 H RBC 3.24 L Hgb 10.1 L Hct 30.2 L MCV 93 MCH 31.2 MCHC 33.4 RDW Std Deviation 60.4 H Plt Count 455 H D Neut % (Auto) 81 H Lymph % (Auto) 9 L [place] % (Auto) 7 Eos % (Auto) 1 Baso % (Auto) 1 Neut # (Auto) 10.6 H Lymph # (Auto) 1.2 [place] # (Auto) 0.9 H Eos # (Auto) 0.1 Baso # (Auto) 0.1 Immature Gran # (Auto) 0.29 H Absolute Nucleated RBC 0.00 Immature Gran % 2 H Nucleated RBC % 0 PT 12.6 H D INR 1.2 APTT 28.2 Sodium 135 L Potassium 4.7 Chloride 96 L Carbon Dioxide 30.8 Anion Gap 8 BUN 20 Creatinine 1.0 Estim Creat Clear Calc 88.4 eGFR > 60 BUN/Creatinine Ratio 20 [address]ucose [address] Glu mg/dL 120 Hemoglobin A1c 5.8 Calculated Osmolality 273 L Calcium 7.9 L Corrected Calcium 8.7 Phosphorus 3.7 Magnesium 2.0 Total Bilirubin 5.1 H D AST 86 H ALT 41 Alkaline Phosphatase 156 H Total Protein 6.5 Albumin 3.0 L Globulin 3.5 Albumin/Globulin Ratio 0.9 L Quality Measures Quality Measures VTE prophylaxis Advance care planning discussed with:: patient Assessment & Plan Assessment Current Active Medications: Generic Name Dose Route Start Last Admin Trade Name Freq PRN Reason Stop Dose Admin Acetaminophen 650 mg 08/29/25 01:20 Acetaminophen 325 Mg Tablet PO 09/28/25 01:19 Q6H PRN Fever >100.4 Dextrose 25 ml 08/29/25 18:50 Dextrose 50%-Water Inj 50 Ml Syringe IV 09/28/25 18:49 Q15MIN PRN BG 50-70 responsive npo pt Dextrose 50 ml 08/29/25 18:50 Dextrose 50%-Water Inj 50 Ml Syringe IV 09/28/25 18:49 Q15MIN PRN BG <50 OR BG <70 & pt unresponsive Diazepam 5 mg 08/29/25 01:24 Diazepam Inj 5 Mg/Ml Vial 2 Ml IVP X1 PRN Breakthrough Agitation Folic Acid 1 mg 08/29/25 09:00 08/31/25 08:52 Folic Acid 1 Mg Tablet PO 09/28/25 08:59 1 mg QDAY ENRIQUE Administration Glucagon 1 mg 08/29/25 18:50 Glucagon Inj 1 Mg Vial IM Q15MIN PRN BG <70, and no IV access Ceftriaxone Sodium/Dextrose 1 gm in 50 mls @ 100 mls/hr 08/29/25 09:00 08/31/25 08:52 Rocephin/D5w 1gm Iv Premix IV 09/05/25 08:59 100 mls/hr QDAY ENRIQUE Administration Albumin Human 25 gm in 100 mls @ 100 mls/hr 08/29/25 08:30 08/31/25 10:38 Albuminex 25% Ivpb IV 09/01/25 08:29 100 mls/hr QDAY ENRIQUE Administration Insulin Degludec 5 unit 08/29/25 21:00 08/30/25 21:23 Insulin Degludec 5 Unit/0.05 Ml (Per 5 Units) SC 09/28/25 20:59 5 unit HS ENRIQUE Administration Insulin Human Lispro 0 unit 08/29/25 21:00 08/31/25 11:30 Insulin Lispro (Admelog) 1 Unit/0.01 Ml Unit SC 09/28/25 20:59 Not Given ACHS ENRIQUE Protocol Lactulose 10 gm 09/01/25 09:00 Lactulose Syrup 20 Gm/30 Ml Udc PO 10/01/25 08:59 QDAY ENRIQUE Protocol Lorazepam 0.5 mg 08/29/25 01:24 Lorazepam 0.5 Mg Tablet PO 09/03/25 01:23 Q4HR PRN CIWA Score 2-6 Lorazepam 1 mg 08/29/25 01:24 Lorazepam 0.5 Mg Tablet PO 09/03/25 01:23 Q4HR PRN CIWA SCORE 7-11 Lorazepam 2 mg 08/29/25 01:24 Lorazepam 0.5 Mg Tablet PO 09/03/25 01:23 Q4HR PRN CIWA SCORE 12-15 Metoprolol Succinate 100 mg 08/30/25 09:00 08/31/25 08:52 Metoprolol Succinate Xl 25 Mg Tabcr PO 09/29/25 08:59 100 mg QDAY ENRIQUE Administration Spironolactone 100 mg 08/29/25 09:00 08/31/25 08:54 Spironolactone 25 Mg Tablet PO 09/28/25 08:59 100 mg QDAY ENRIQUE Administration Thiamine HCl 100 mg 08/29/25 09:00 08/31/25 08:52 Thiamine 100 Mg Tablet PO 09/28/25 08:59 100 mg QDAY ENRIQUE Administration Plan 75-year-old male past medical history of alcoholism presented to the ED BIBA in the afternoon of 08/28/2025 after being bedridden for 4 weeks.? He was reported to have been found down by a neighbor covered in his own feces 8 weeks ago after being intoxicated.? He was transferred to a bed where he has stayed for the past 4 weeks until presentation.?Patient was admitted for sepsis secondary to UTI. Cardiology was consulted for atrial fibrillation RVR. #New onset Atrial fibrillation, RVR No significant past medical history. Patient does not follow-up with any PCP or electrical systems designer in the past. Most likely A-fib due to alcohol consumption. No evidence of heart failure on exam or echo. Heart rate well-controlled after starting metoprolol. [id number] 2, has bled 5. PT/INR on admission was abnormal because of liver disease. Echo on 08/29 shows normal LV size and systolic function. EF 60-65%. RVSP 29. -continue metoprolol 100mg daily for rate control -no anticoagulation at this time due to elevated has bled score and low [id number] VASc. - can be started on p.o. diltiazem 120 mg daily for additional rate control. #Excellent echocardiogram is completed, showed evidence of normal left ventricular function, hyperdynamic ventricle, no significant left atrial enlargement, no valvular heart disease. #Hyponatremia. #Anemia secondary to chronic disease. #Cirrhosis of the liver. #Cholelithiasis. #Incidental finding of right lower renal calculus. Primary care team to manage above conditions and ongoing care needs. The patient's management plan was discussed with my attending physician Dr. Chacon. Tiffanie Vaughn, PGY-2
[2025-08-31] MEDS: INSULIN LISPRO (AdmeLOG) 1 UNIT/0.01 ML UNIT SC (17:25)
[2025-08-31] MEDS: INSULIN DEGLUDEC 5 UNIT/0.05 ML (PER 5 UNITS) SC (21:27)
[2025-08-31] MEDS: BALSAM PERU/CASTOR OIL (Venelex) 60 GM TUBE TOP (21:28)
[2025-09-01] VITALS (8 sets, daily range): BP systolic 106–146; BP diastolic 61–92; PULSE 85–110; RESP 13–24; TEMP 36.4–37.2; O2SAT 92–97; BMI 30.7
[2025-09-01 05:22] LABS: Basophils # (Auto) 0.1 Thou/mm3 (0.0-0.2); Basophils % (Auto) 1 % (0-2.5); Eosinophils # (Auto) 0.1 Thou/mm3 (0.0-0.5); Eosinophils % (Auto) 1 % (0-10); Hematocrit 28.8 % (41.0-53.0); Hemoglobin 9.6 g/dL (13.5-16.0); Immature Granulocytes Auto 0.23 Thou/mm3 (0.00-0.00); Lymphocytes # (Auto) 1.2 Thou/mm3 (1.0-4.8); Lymphocytes % (Auto) 9 % (10-50); Mean Corpuscular HGB Conc 33.3 g/dl (31.0-37.0); Mean Corpuscular Hemoglobin 31.2 pg (25.0-35.0); Mean Corpuscular Volume 94 fL (80-100); Monocytes # (Auto) 0.9 Thou/mm3 (0.0-0.8); Monocytes % (Auto) 7 % (0-12); Neutrophils # (Auto) 10.7 Thou/mm3 (1.8-7.7); Neutrophils % (Auto) 81 % (37-80); Nucleated Red Blood Cell # 0.00 Thou/mm3 (0.00-0.00); Nucleated Red Blood Cell % 0 /100 WBC (0); Platelet Count 409 Thou/mm3 (140-440); RDW Standard Deviation 60.6 fL (35.1-43.9); Red Blood Count 3.08 Miln/mm3 (4.50-5.90); White Blood Count 13.1 Thou/mm3 (3.8-10.6)
[2025-09-01 05:50] LABS: Alanine Aminotransferase 44 U/L (10-49); Albumin, Serum 3.1 gm/dL (3.4-4.8); Albumin/Globulin Ratio 0.9 (1.2-2.2); Alkaline Phosphatase 158 U/L (46-116); Anion Gap 7 (7-16); Aspartate Amino Transferase 91 U/L (0-34); BUN/Creatinine Ratio 19 Ratio (12-20); Bilirubin,Total 4.5 mg/dL (0.3-1.2); Blood Urea Nitrogen 15 mg/dL (9-23); Calcium 7.9 mg/dL (8.3-10.6); Calcium (Corrected) 8.6 mg/dL (8.5-10.1); Carbon Dioxide 29.0 mMol/L (20.0-31.0); Chloride 98 mMol/L (98-107); Creatinine (Component) 0.8 mg/dL (0.6-1.3); Estimated Creatinine Clearance 110.9 mL/min (>60); Globulin 3.4 gm/dL (2.3-3.5); Glucose 115 mg/dL (74-106); Magnesium 2.0 mg/dL (1.6-2.6); Osmolality,Calculated 270 (275-295); Phosphorous 3.0 mg/dL (2.4-5.1); Potassium 4.9 mMol/L (3.4-5.1); Sodium 134 mMol/L (136-145); Total Protein 6.5 gm/dL (5.7-8.2); eGFR > 60 See Note
[2025-09-01] MEDS: THIAMINE 100 MG TABLET PO (08:42)
[2025-09-01] MEDS: SPIRONOLACTONE 25 MG TABLET 100 MG PO (08:42)
[2025-09-01] MEDS: METOPROLOL SUCCINATE XL 25 MG TABCR 100 MG PO (08:43)
[2025-09-01] MEDS: LACTULOSE SYRUP 20 GM/30 ML UDC 10 GM PO (08:43)
[2025-09-01] MEDS: FOLIC ACID 1 MG TABLET PO (08:43)
[2025-09-01] MEDS: cefTRIAXone/D5w 1gm IV premix 1 GM/50 ML BAG IV (08:43)
[2025-09-01] MEDS: BALSAM PERU/CASTOR OIL (Venelex) 60 GM TUBE TOP (09:01)
--- NOTE | 2025-09-01 10:15 | PC.NURSE ---
Per Dr. Marks please have PT see pt. and then DC pt. RICHELLE Wu Spoke to PT Dileep and per Dileep I will not be able to see pt. until 1529. Dr. Marks aware PT Treatment not available until [address] Marks orders never mind, pt. can be DC after evaluation of home meds.
--- NOTE | 2025-09-01 10:31 | PC.NURSE ---
Dr. Marks aware of pt. BP 106/61, Dr. henson hold diltiazem for now and we will review home meds for discharge.
--- NOTE | 2025-09-01 11:30 | PC.NURSE ---
Pt. educated on all discharge education. pt. educated to follow up with new primary care doctor tomorrow to ensure HH services is established. Pt. educated on how to take care of wounds and importance of wounds. pt. verbalizes understanding of education and returns demonstration.
--- NOTE | 2025-09-01 11:45 | PC.NURSE ---
Spoke with Dr. Hamm about concerns for discharging this pt. home. Pt. has to see primary care doctor tomorrow to get referral for home health completed and pt. is aware of that and aware of importance of appointment. pt. refuses to go to SNF due to refusal to pay copay, pt. reports having funds for this but refuses to pay for it. Dr. Hamm aware of RN concern for pt. safe discharge. Per Dr. Hamm we have exhausted all options for patient, SS got pt. into adult daycare and pt. agrees to go there. Dr. Hamm aware pt. is AOX4 and was educated completely and thoroughly on discharge instructions and verbalizes understanding importance of follow up appointment and medication instructions.
--- NOTE | 2025-09-01 12:03 | PC.NURSE ---
Spoke with Pt. Brother hussein at bedside, Hussein has been working with [facility] and was notified that adult day care will pick him up and drop him off every day as verbalized by Hussein. All discharge instructions were provided to pt. brother Hussein and Hussein verbalized agreement and understanding of education as well. Dr. Marks at bedside for conversation as well and answered all family questions.
--- NOTE | 2025-09-01 13:23 | PC.SS ---
RETIREMENT SPECIALIST confirmed with patient's brother, Hussein Delgado ; discharge plan for patient to return home. RETIREMENT SPECIALIST provided brother with contact number and addresses to [facility] office and Social Security Office. Brother plans on taking patient to apply for [employer] and Medicare benefits.
--- NOTE | 2025-09-01 13:25 | PC.SS ---
MECHANICAL MANUFACTURING ENGINEER attempted to contact financial counselor on behalf of the patient. No response. MECHANICAL MANUFACTURING ENGINEER left message requesting return call.
--- NOTE | 2025-09-01 14:00 | ESDS_ITS ---
Planned Discharge Date 09/01/25 DS: Providers Provider Date of admission: 08/29/25 01:32 Primary care physician: Physician No Primary/Family Admitting Provider: Rody Grover MD Attending Provider on Admission: Babatunde Hamm DO Consults: 08/29/25 01:24 Referral Wound Care Routine Comment: decubitus 08/29/25 01:26 Consult to Cardiology Routine Comment: New onset afib with rvr Consulting Provider: Eli Chacon 08/29/25 01:51 Referral Physical Therapy Routine Comment: Physician Instructions: Attending Provider on DC: Devika Yates DO Discharging Provider: Devika Yates DO DS: Diagnosis Problem List Completed Was Problem List Reviewed/Reconciled?: Yes Hospital Course Status at Discharge Cognitive/behavioral status at discharge: 75-year-old male past medical history of alcoholism presented to the ED BIBA in the afternoon of 08/28/2025 after being bedridden for 4 weeks. Urinalysis showed turbid urine, 45 WBC, amorphous crystals, 3+ bacteria, and leukocyte esterase positive. Urine cultures later grew pansensitive E. coli. Patient had comment with fever 101, HR 117, WBC 15.7, as well as concerns over mental status changes from his baseline. Lactic acid elevated to 2.3, which trended up to 3.0, before normalizing with IV fluids. Patient admitted for sepsis secondary to UTI, and started on ceftriaxone 1 g daily on 08/29. Blood cultures negative after 48 hours. After initiation of antibiotic therapy, vital signs improved and so did leukocytosis. No signs of endorgan damage could be seen persisting forward. Sepsis resolved. Patient stayed afebrile through the course of his hospitalization. 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 He had been found to be in A-fib with RVR at presentation and since [id number] score was 2 and patient with underlying coagulopathy with elevated PT 21, INR 2.1, APTT 21.1, no anticoagulation was indicated. Heart rate improved with metoprolol 150 mg daily and stayed within normal range. At the time of discharge, patient is medically stable and deemed safe to return to his/her previous state of living. Admission diagnosis: #Sepsis, resolved #UTI #Leukocytosis #Lactic acidosis #Hyperbilirubinemia #Cholelithiasis #Cirrhosis secondary to #Alcohol use disorder #Hypoalbuminemia #Ascites #Coagulopathy #A-fib with RVR #Hyponatremia #Hypochloremia #Hyperglycemia #Prediabetes #Acute normocytic anemia #Tarry stools #Incidental finding of 3 mm upper pole right renal calculus Discharge instructions: Patient will be discharged to adult day care, please refer to brochure that [facility] has for further contact and location information. Please follow-up with your PCP within 1 week of discharge Please follow-up with scalp treatment specialist Dr. Chacon within 2 weeks of discharge You have been started on: - Amoxicillin and potassium clavulanate 875-125 mg twice daily for 3 dose to complete 5 days of course - Folic acid 1 mg daily for 30 days - Metoprolol succinate 100 Mg daily - Diltiazem 120mg ER daily. Measure your blood pressure before taking, IF top number is less than 120 and bottom number less than 60 DO NOT TAKE THAT DOSE. 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 Continue taking all other medicines as prescribed -Recommended to return back to emergency department if your symptoms persists or worsens male who Appointment with Dr. Casi Juárez from [facility] is August at 3:30pm - DO NOT MISS THIS APPOINTMENT, YOU WILL RECEIVE REFERRAL FROM HOME HEALTH AFTER ESTBALISHING THIS DOCTOR YOUR PRIMARY DOCTOR. This case was discussed with my attending physician, Dr. Hamm, and senior resident, Dr Sterling. Even though this this note was carefully revised there may still be minor errors in natural resource economist due to voice recognition software. Devika Yates, DO PGY I Senior Resident Attestation: I discussed with and supervised the internal audit manager physician involved in the care of this patient. I personally saw and examined the patient and discussed the assessment and plan with the entire medicine team, including my attending. I agree with the discharge plan as documented above. Bill Sterling MD PGY3 Internal Medicine Functional status at discharge: wheelchair bound Time Spent with Patient Time attestation: Total time spent providing and/or coordinating discharge services: More than 50% of the patient's total hospital stay Time spent: Greater than 30 minutes Exam Vital Signs Temp Pulse Resp BP Pulse Ox O2 Del Method 97.8 F 89 19 142/92 H 92 L Room Air 09/01/25 12:09/01/25 12:09/01/25 12:09/01/25 12:09/01/25 12:09/01/25 12:00 Narrative Exam General: Jaundiced, scleral icterus. Awake and in no acute distress. Conversational and non-toxic appearing. HEENT: Normocephalic, atraumatic, mucous membranes moist. Pupils reactive to light. Heart: Irregular rhythm, tachycardic in the 110s, no murmurs. Abdomen: Firm, distended, Naidu sign negative. Minimal ascetic fluid wave. Nontender. No guarding or rebound tenderness. Extremities: Ecchymosis inferior to the right shoulder on the chest. No edema. 2+ radial and dorsalis pedis pulses bilaterally. Skin: Jaundiced. Warm. Dry. No rash or ecchymoses. Discharge Plan Plan Patient Disposition: HOME (Self Care) Patient condition on transfer: Stable and Benefits outweigh risks Care Plan Goals: Patient will be discharged to adult day care, please refer to brochure that patient has for further contact and location information. Please follow-up with your PCP within 1 week of discharge Please follow-up with scalp treatment specialist Dr. Chacon within 2 weeks of discharge You have been started on: - Amoxicillin and potassium clavulanate 875-125 mg twice daily for 3 dose to complete 5 days of course - Folic acid 1 mg daily for 30 days - Metoprolol succinate 100 Mg daily - Diltiazem 120mg ER daily. Measure your blood pressure before taking, IF top number is less than 120 and bottom number less than 60 DO NOT TAKE THAT DOSE. 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 Continue taking all other medicines as prescribed -Recommended to return back to emergency department if your symptoms persists or worsens male who Appointment with Dr. Casi Juárez from [facility] is August at 3:30pm - DO NOT MISS THIS APPOINTMENT, YOU WILL RECEIVE REFERRAL FROM [facility] AFTER ESTBALISHING THIS DOCTOR YOUR PRIMARY DOCTOR. Prescriptions/Referrals Prescriptions/Med Rec: New thiamine mononitrate (vit B1) 100 mg Tablet 100 mg PO BID Qty: 60 0RF spironolactone 100 mg tablet 100 mg PO QDAY 30 Days Qty: 30 0RF metoprolol succinate 100 mg tablet extended release 24 hr 100 mg PO QDAY 30 Days Qty: 30 0RF folic acid 1 mg Tablet 1 mg PO QDAY 30 Days Qty: 30 0RF lactulose 10 gram/15 mL Solution 10 g PO BID 15 Days Qty: 450 0RF diltiazem HCl [Cardizem CD] 120 mg capsule,extended release 24hr 120 mg PO QDAY Qty: 30 0RF amoxicillin-pot clavulanate 875-125 mg tablet 1 tab PO BID Qty: 3 0RF Rx Instructions: To complete 5 days of course. Referrals: No Primary/Family,Physician [Primary Care Provider] Patient/Caregiver Discharge Instructions Other Discharge Activity Instructions:: Please follow-up with your PCP within 1 week of discharge Please follow-up with scalp treatment specialist Dr. Chacon within 2 weeks of discharge You have been started on: - Amoxicillin and potassium clavulanate 875-125 mg twice daily for 3 dose to complete 5 days of course -Folic acid 1 mg daily for 30 days -Metoprolol succinate 100 Mg daily - Diltiazem 120mg ER daily - Spironolactone 100 Mg daily - Thiamine 100 Mg twice daily for 30 days If you do not have a blood pressure monitor at home, please obtain one from the pharmacy when you go to worm picker your new medication. Continue taking all other medicines as prescribed -Recommended to return back to emergency department if your symptoms persists or worsens male who Appointment with Dr. Casi Juárez from [facility] is August at 3:30pm - DO NOT MISS THIS APPOINTMENT, YOU WILL RECEIVE REFERRAL FROM HOME HEALTH AFTER ESTBALISHING THIS DOCTOR YOUR PRIMARY DOCTOR. Education Materials: Alcoholism Resources, Alcoholism: Getting Help Print Language: Bruneian Stand Alone Forms: Ramona Award Info., Patient Portal Info Letter Discharge Order Discharge Orders: Discharge (Routine); Ordered 09/01/25 Ordered By: Rajiv Marks Quality Discharge Quality Measures none MD Attestestation MD Attestation I have discussed and was present for the essential components of the discharge history, physical examination, diagnosis, and discharge treatment plan with the resident. I agree with the patient's discharge care as documented by the resident and amended herein by me. Prasanna Hamm DO. The patient understood all discharge instructions, all questions were answered satisfactorily. The patient was instructed to return to the Emergency Department is symptoms worsened or persisted. Patient was stable, afebrile, and tolerating p.o. intake, patient discharged home with home health for physical therapy. We did also give the patient information on adult daycare services which she can attend daily. Patient understood all instructions. Although this document has been carefully reviewed, there may still be some phonetic and other typographical errors. These errors are purely grammatical due to imperfections in the software program and should not be construed in any way to compromise the substance of the patient's medical care during this visit.
--- NOTE | 2025-09-01 15:20 | ESPR_ITS ---
<Statement entered by Eli Chacon MD - 09/04/25 18:27> I personally examined immunization evaluate the patient appears to be doing quite well in fact he has no shortness of chest pain A-fib rate controlled much better with combination of metoprolol and Cardizem CD no shortness of or chest pain reported blood pressures are controlled well patient is much more stable can be discharged home in stable condition I will see him for follow-up in my office following discharge evaluate the patient with resident physician PGY 2 Dr. Parikh agree with the treatment plan recommendation as documented Documentation for date of: 09/01/25 Subjective Subjective Interval history: 08/30: Patient examined at bedside. Has no major complaints. Denies any chest pain or palpitations. Telemetry reviewed he remains in atrial fibrillation rate 90?100. Metoprolol dose was increased to 100 mg daily and remains on spironolactone 100 daily. Echo on 08/29 shows normal LV size and systolic function. EF 60-65%. RVSP 29. No anticoagulation indicated as [id number] score 2. Elevated has bled score of 4. Continue metoprolol 50 mg daily for rate control in setting of A-fib. 08/31: Patient examined at bedside. Has no major complaints. No chest pain or palpitations. She reviewed he remains in atrial fibrillation rate elevated from yesterday tachycardic around 110. On blood pressure 162/95. Labs were reviewed creatinine has downtrended to 1.0. Currently on metoprolol succinate 100 mg daily for rate control. Patient can be started on p.o. diltiazem 120 mg daily for additional rate control. 09/01: Patient seen at bedside. Remains stable no major complaints. Vitals reviewed and stable. Telemetry shows patient to remain in atrial fibrillation heart rate improved since yesterday rate controlled around 100. Creatinine 0.8, magnesium 2.0. Continue metoprolol 100 mg daily and p.o. diltiazem 120 mg daily. No anticoagulation at this time. Patient is stable for discharge from cardiology standpoint. Exam Vital Signs Temp Pulse Resp BP Pulse Ox O2 Del Method 97.8 F 89 19 142/92 H 92 L Room Air 09/01/25 12:00 09/01/25 12:00 09/01/25 12:09/01/25 12:09/01/25 12:00 09/01/25 12:00 Narrative Exam General: Jaundiced, scleral icterus. Awake and in no acute distress. Conversational and non-toxic appearing. Neurologic: GCS 15. Alert and oriented x3, no gross neurological deficit, and patient able to move all 4 extremities. HEENT: Normocephalic, atraumatic, mucous membranes moist. Pupils reactive to light. Heart: Irregular rhythm, regular rate, no murmurs. Lungs: Clear to auscultation bilaterally with no wheezing or crackles. Abdomen: Firm, distended, Naidu sign negative. Minimal ascetic fluid wave. Nontender. No guarding or rebound tenderness. Extremities: Ecchymosis inferior to the right shoulder on the chest. No edema. 2+ radial and dorsalis pedis pulses bilaterally. Skin: Jaundiced. Warm. Dry. No rash or ecchymoses. Objective Labs 09/01/25 04:52 09/01/25 04:52 Labs: Laboratory Results - last 24 hr 09/01/25 04:52 WBC 13.1 H RBC 3.08 L Hgb 9.6 L Hct 28.8 L MCV 94 MCH 31.2 MCHC 33.3 RDW Std Deviation 60.6 H Plt Count 409 D Neut % (Auto) 81 H Lymph % (Auto) 9 L [place] % (Auto) 7 Eos % (Auto) 1 Baso % (Auto) 1 Neut # (Auto) 10.7 H Lymph # (Auto) 1.2 [place] # (Auto) 0.9 H Eos # (Auto) 0.1 Baso # (Auto) 0.1 Immature Gran # (Auto) 0.23 H Absolute Nucleated RBC 0.00 Immature Gran % 2 H Nucleated RBC % 0 Sodium 134 L Potassium 4.9 Chloride 98 Carbon Dioxide 29.0 Anion Gap 7 BUN 15 Creatinine 0.8 Estim Creat Clear Calc 110.9 eGFR > 60 BUN/Creatinine Ratio 19 Glucose 115 H Calculated Osmolality 270 L Calcium 7.9 L Corrected Calcium 8.6 Phosphorus 3.0 Magnesium 2.0 Total Bilirubin 4.5 H D AST 91 H ALT 44 Alkaline Phosphatase 158 H Total Protein 6.5 Albumin 3.1 L Globulin 3.4 Albumin/Globulin Ratio 0.9 L Quality Measures Quality Measures VTE prophylaxis Advance care planning discussed with:: patient Assessment & Plan Assessment Current Active Medications: Generic Name Dose Route Start Last Admin Trade Name Freq PRN Reason Stop Dose Admin Acetaminophen 650 mg 08/29/25 01:20 Acetaminophen 325 Mg Tablet PO 09/28/25 01:19 Q6H PRN Fever >100.4 Balsam [place]gora/[place]ch[place] Oil 0 gm 08/31/25 21:00 09/01/25 09:01 Balsam Mariel/[place] Oil (Venelex) 60 Gm Tube TOP 09/30/25 20:59 1 appln BID ENRIQUE Administration Dextrose 25 ml 08/29/25 18:50 Dextrose 50%-Water Inj 50 Ml Syringe IV 09/28/25 18:49 Q15MIN PRN BG 50-70 responsive npo pt Dextrose 50 ml 08/29/25 18:50 Dextrose 50%-Water Inj 50 Ml Syringe IV 09/28/25 18:49 Q15MIN PRN BG <50 OR BG <70 & pt unresponsive Diazepam 5 mg 08/29/25 01:24 Diazepam Inj 5 Mg/Ml Vial 2 Ml IVP X1 PRN Breakthrough Agitation Folic Acid 1 mg 08/29/25 09:00 09/01/25 08:43 Folic Acid 1 Mg Tablet PO 09/28/25 08:59 1 mg QDAY ENRIQUE Administration Glucagon 1 mg 08/29/25 18:50 Glucagon Inj 1 Mg Vial IM Q15MIN PRN BG <70, and no IV access Ceftriaxone Sodium/Dextrose 1 gm in 50 mls @ 100 mls/hr 08/29/25 09:00 09/01/25 08:43 Rocephin/D5w 1gm Iv Premix IV 09/05/25 08:59 100 mls/hr QDAY ENRIQUE Administration Insulin Degludec 5 unit 08/29/25 21:00 08/31/25 21:27 Insulin Degludec 5 Unit/0.05 Ml (Per 5 Units) SC 09/28/25 20:59 5 unit HS ENRIQUE Administration Insulin Human Lispro 0 unit 08/29/25 21:00 09/01/25 11:36 Insulin Lispro (Admelog) 1 Unit/0.01 Ml Unit SC 09/28/25 20:59 Not Given ACHS ENRIQUE Protocol Lactulose 10 gm 09/01/25 09:00 09/01/25 08:43 Lactulose Syrup 20 Gm/30 Ml Udc PO 10/01/25 08:59 10 gm QDAY ENRIQUE Administration Protocol Lorazepam 0.5 mg 08/29/25 01:24 Lorazepam 0.5 Mg Tablet PO 09/03/25 01:23 Q4HR PRN CIWA Score 2-6 Lorazepam 1 mg 08/29/25 01:24 Lorazepam 0.5 Mg Tablet PO 09/03/25 01:23 Q4HR PRN CIWA SCORE 7-11 Lorazepam 2 mg 08/29/25 01:24 Lorazepam 0.5 Mg Tablet PO 09/03/25 01:23 Q4HR PRN CIWA SCORE 12-15 Metoprolol Succinate 100 mg 08/30/25 09:00 09/01/25 08:43 Metoprolol Succinate Xl 25 Mg Tabcr PO 09/29/25 08:59 100 mg QDAY ENRIQUE Administration Spironolactone 100 mg 08/29/25 09:00 09/01/25 08:42 Spironolactone 25 Mg Tablet PO 09/28/25 08:59 100 mg QDAY ENRIQUE Administration Thiamine HCl 100 mg 08/29/25 09:00 09/01/25 08:42 Thiamine 100 Mg Tablet PO 09/28/25 08:59 100 mg QDAY ENRIQUE Administration Plan 75-year-old male past medical history of alcoholism presented to the ED BIBA in the afternoon of 08/28/2025 after being bedridden for 4 weeks.? He was reported to have been found down by a neighbor covered in his own feces 8 weeks ago after being intoxicated.? He was transferred to a bed where he has stayed for the past 4 weeks until presentation.?Patient was admitted for sepsis secondary to UTI. Cardiology was consulted for atrial fibrillation RVR. #New onset Atrial fibrillation, RVR No significant past medical history. Patient does not follow-up with any PCP or metalworker in the past. Most likely A-fib due to alcohol consumption. No evidence of heart failure on exam or echo. Heart rate well-controlled after starting metoprolol. [id number] 2, has bled 5. PT/INR on admission was abnormal because of liver disease. Echo on 08/29 shows normal LV size and systolic function. EF 60-65%. RVSP 29. -continue metoprolol 100mg daily for rate control -no anticoagulation at this time due to elevated has bled score and low [id number]- VASc. - can be started on p.o. diltiazem 120 mg daily for additional rate control. #Excellent echocardiogram is completed, showed evidence of normal left ventricular function, hyperdynamic ventricle, no significant left atrial enlargement, no valvular heart disease. #Hyponatremia. #Anemia secondary to chronic disease. #Cirrhosis of the liver. #Cholelithiasis. #Incidental finding of right lower renal calculus. Primary care team to manage above conditions and ongoing care needs. The patient's management plan was discussed with my attending physician Dr. Chacon. Tiffanie Vaughn, PGY-2
== END 2025-09-01 15:05 | disposition home or self-care (01) | DRG 872 ==
LOC: SERX 21:57 → SERHOLD 08-29 01:33 → S2NX 08-29 04:02
PROVIDERS: Nurse Practitioner Family; Admitting Provider Student in an Organized Health Care Education/Training Program; Emergency Provider Emergency Medicine; Visit Provider Student in an Organized Health Care Education/Training Program
DX: A41.9 Sepsis, unspecified organism (principal); N39.0 Urinary tract infection, site not specified; K80.21 Calculus of gallbladder without cholecystitis with obstruction; E87.1 Hypo-osmolality and hyponatremia; D68.9 Coagulation defect, unspecified; E87.20 Acidosis, unspecified; I47.20 Ventricular tachycardia, unspecified; R65.20 Severe sepsis without septic shock; I48.91 Unspecified atrial fibrillation; K70.11 Alcoholic hepatitis with ascites; N20.0 Calculus of kidney; E88.09 Other disorders of plasma-protein metabolism, not elsewhere classified; I10 Essential (primary) hypertension; E87.8 Other disorders of electrolyte and fluid balance, not elsewhere classified; K72.90 Hepatic failure, unspecified without coma; R73.9 Hyperglycemia, unspecified; R62.7 Adult failure to thrive; R19.5 Other fecal abnormalities; R73.03 Prediabetes; K70.31 Alcoholic cirrhosis of liver with ascites; F10.20 Alcohol dependence, uncomplicated; B96.20 Unspecified Escherichia coli [E. coli] as the cause of diseases classified elsewhere; D63.8 Anemia in other chronic diseases classified elsewhere; Z79.899 Other long term (current) drug therapy
CPT/HCPCS: 36415; 71045; 73030; 74177; 76705; 80053; 80061; 80074; 81001; 82248; 82550; 83036; 83605; 83615; 83690; 83735; 83880; 84100; 84145; 84443; 84484; 85025; 85610; 85730; 87040; 87077; 87086; 87186; 93005; 93306; 96361; 96365; 96375; 97163; 99285; A4649; J0696; J1815; J2470; J3411; J7120; P9047; Q9967; A9270